=== PATIENT | male | born 1985 | race Caucasian/White ===

== ENCOUNTER 2018-12-30 21:29 | Emergency (ER) | payer MEDICAID, SELFPAY ==
[2018-12-30 21:31] VITALS: BP 153/92; PULSE 87; RESP 18; TEMP 36.7; O2SAT 98; BMI 31.1
--- NOTE | 2018-12-30 21:41 | ED.DCSUM_ITS ---
- ER Visit Summary Date of Service: 12/30/18 Chief Complaint: Headache History of Present Illness: The patient is a 33 M who has had a headache for the past 6 hours. It similar to prior headaches. It sharp on the left side of his head. He believes is coming from his neck because the neck feels tight. Denies any falls or trauma. No visual changes. He took nothing for this at home. He has a history of Marfan's syndrome. He states he has had headaches all of his life. Physical Examination: Vital signs reviewed. HEENT exam unremarkable. Heart is regular rate and rhythm without murmurs. Lungs are clear to auscultation. Abdomen is soft and nontender. Extremities reveal no edema. Skin exam normal. Neurologic exam normal. Test Results: None performed Emergency Department Course and Treatment: Patient was given Reglan and Benadryl as well as IV fluids. His headache is better but he was still complaining of pain in the left part of the neck in the musculature. I will give him Flexeril here and also some doses for home. Although he does have a history of Marfan syndrome he has a normal neurologic examination. I do not feel he needs a CAT scan of his head at this time. Treatment Plan: [] Disposition: Discharge Impression: Headache, neck pain This note was generated with [employer] dictation software. It may contain incorrect words, spelling, and punctuation that were not noted in review of the chart prior to signing ED Disposition - Plan for ED Patient: Referrals: Daniel Dolan MD [Primary Care Provider] -
[2018-12-30] MEDS: 0.9% Normal Saline 1,000 ML 999 ML IV (21:55)
[2018-12-30] MEDS: DiphenhydrAMINE 50 MG/ML Syringe 25 MG IV (21:55)
[2018-12-30] MEDS: Metoclopramide 10 MG/2 ML Vial IV (21:55)
--- NOTE | 2018-12-30 22:31 | ED.DEP ---
ED Disposition - Plan for ED Patient: Disposition: Home or Assisted Living Instructions: HEADACHE, Migraine (Classical) Prescriptions: cycloBENZAPRine HCl [Flexeril] 10 mg PO TID PRN #10 tab PRN Reason: Muscle Spasm Prescription Printed Referrals: Daniel Dolan MD [Primary Care Provider] -
[2018-12-30] MEDS: cycloBENZAPRine HCl 10 MG Tablet PO (22:41)
[2018-12-30 22:42] VITALS: BP 154/96; PULSE 84; RESP 18; O2SAT 95
== END 2018-12-30 22:47 | disposition home or self-care (01) ==
PROVIDERS: Emergency Provider Emergency Medicine; Family Provider Family Medicine; PCP Family Medicine
DX: R51 Headache (principal); M54.2 Cervicalgia; R11.0 Nausea; R06.00 Dyspnea, unspecified; Q87.40 Marfan syndrome, unspecified; Z72.0 Tobacco use
CPT/HCPCS: 96361; 96374; 96375; 99284; J7030; A4216

== ENCOUNTER 2020-06-25 16:59 | Emergency (ER) | payer MEDICAID, SELFPAY ==
[2020-06-25 16:59] VITALS: BP 165/123; PULSE 94; RESP 16; TEMP 36.6; O2SAT 99; BMI 33.5
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
[2020-06-25] MEDS: Naproxen 500 MG Tablet PO (18:28)
[2020-06-25] MEDS: cycloBENZAPRine HCl 10 MG Tablet PO (18:28)
[2020-06-25 18:33] VITALS: BP 174/122; PULSE 95; RESP 18; O2SAT 96
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
--- NOTE | 2020-06-25 19:55 | ED.RN ---
Pt yelling at this nurse about not eating for 24hrs and that he is really thristy. dr mcdonald notified. ok to give crackers and water.
[2020-06-25 20:08] VITALS: BP 166/100; PULSE 88; RESP 20; O2SAT 98
== END 2020-06-25 20:12 | disposition home or self-care (01) ==
PROVIDERS: Emergency Provider Emergency Medicine; PCP Family Medicine
DX: M54.16 Radiculopathy, lumbar region (principal); F17.200 Nicotine dependence, unspecified, uncomplicated
CPT/HCPCS: 72100; 99283

== ENCOUNTER 2022-10-13 21:37 | Inpatient (IN) | payer MEDICAID, SELFPAY ==
[2022-10-13 21:40] VITALS: PULSE 120; RESP 24; TEMP 36.6; O2SAT 98
--- NOTE | 2022-10-13 22:35 | RAD_ITS ---
INDICATION: Fall, hit knee on steps, swelling and bruising EXAMINATION/TECHNIQUE: X-RAY - RIGHT XR Knee Complete 4 Views or More COMPARISON: None. FINDINGS: SOFT TISSUES: Soft tissue swelling anterior knee. Small joint effusion. BONES/JOINTS: Transverse fractures mid and lower patella demonstrating up to 8 mm cortical distraction. No dislocation. Preservation of the joint space(s). RAD/Knee 4 or More Views IMPRESSION: Mildly distracted right patellar fracture Electronically Signed: Jose Eduardo Euceda MD at 23:06 EDT ,
[2022-10-14] VITALS (8 sets, daily range): BP systolic 162–195; BP diastolic 103–115; PULSE 97–112; RESP 16–20; TEMP 36.3–36.8; O2SAT 93–99; BMI 35.2; BMI 38.3
--- NOTE | 2022-10-14 00:57 | EX.ED.DYSGE1 ---
HPI History of Present Illness Chief Complaint: Fall Detail of Chief Complaint: Right knee injury Informant: patient Onset/Context/Timing Onset: Days (October 12) Current Severity: Moderate Maximum Severity: Severe Narrative Narrative: Patient presents secondary to knee pain. He states he was in the basement when he fell landing directly on his flexed knee. He states has not been able to bear weight. He does have some flexion and extension abilities. He denies any other injury from the fall. PFSH PFSH Medical History no medical history no medical history Home Medications cyclobenzaprine 10 mg tablet 10 mg PO TID PRN Muscle Spasm #10 tabs 12/30/18 [Rx Last Taken Unknown] cyclobenzaprine 10 mg tablet 10 mg PO TID PRN Muscle Spasm #20 tabs 06/25/20 [Rx Last Taken Unknown] methylprednisolone 4 mg tablets in a dose pack 4 mg PO UD ##1 06/25/20 [Rx Last Taken Unknown] Allergy/AdvReac Type Severity Reaction Status Date / Time No Known Allergies Allergy Verified 10/13/22 21:42 Social History Smoking Status: Current every day smoker tobacco type: cigarettes ROS ROS ED Constitutional Constitutional ED: Denies chills or fever(s) ENT ENT ED: Denies rhinorrhea or sore throat Cardiovascular Cardiovascular: Denies chest pain or palpitations Respiratory/Chest Respiratory/Chest: Denies cough or dyspnea Gastrointestinal Gastrointestinal: Denies abdominal pain, nausea or vomiting Genitourinary Genitourinary ED: Denies dysuria Musculoskeletal Musculoskeletal: Reports extremity pain; Denies back pain Integumentary Denies Abrasions or rash Neurologic Neurologic: Denies headache(s) or weakness Allergic/Immunologic Allergic/Immunologic ED: Denies lip swelling or urticaria EXAM Physical Exam Const Vital Signs: 10/13/22 21:40 10/14/22 00:44 Temperature 97.8 F Temperature Source Temporal Pulse Rate 120 H Respiratory Rate 24 H Respiratory Effort Normal Non-Labored Pulse Ox 98 Oxygen Delivery Method Room Air Positive well nourished and well developed General Appearance ED: well developed HEENT Reports normocephalic and head/scalp atraumatic Eyes PERRL and EOMs intact bilaterally Neck supple Chest Wall inspection of chest normal and palpation of chest normal Resp normal respiratory effort and clear to auscultation bilaterally Cardio regular rate and regular rhythm GI normal to inspection, nondistended, normoactive bowel sounds Palpation: soft Back/Spine Back/Spine Narrative: No midline thoracic or lumbar tenderness. Extremity Extremity Narrative: Edema and ecchymosis noted to the anterior right knee. Diffuse tenderness. Strong distal pulses. Patient is able to slightly flex and extend at the right knee. Neuro oriented x3 Sensorium / Orientation: alert Psych mental status grossly normal MDM MDM MDM Narrative Medical decision making narrative: Right knee x-rays are obtained per nursing protocol. Radiography Diagnostic Testing: Clinical Impression(s) from Imaging Studies Knee X-Ray 10/13/22 22:35 IMPRESSION: Mildly distracted right patellar fracture Electronically Signed: Jose Eduardo Euceda MD at 23:06 EDT , Treatment and Re-Evaluation :: Right knee x-ray per my interpretation reveals a right patellar fracture. Radiology interpretation is reviewed. Patient is given Moore for pain. Nursing staff placed knee immobilizer on right knee. It took the patient half an hour to get from his wheelchair into the bed. He is not able to get up and ambulate with crutches or a walker. He feels that he will need placement as he cannot care for himself. I will speak with the hospitalist. Discharge Plan Triage Chief Complaint: Fall ED Provider: Kiki Ordonez Dx/Rx/DC Orders Clinical Impression: Fracture, patella Prescriptions: No Action cyclobenzaprine 10 MG tablet 10 mg PO TID PRN (Reason: Muscle Spasm) Qty: 10 0RF cyclobenzaprine 10 MG tablet 10 mg PO TID PRN (Reason: Muscle Spasm) Qty: 20 0RF methylprednisolone 4 MG tablets,dose pack 4 mg PO UD Qty: 1 0RF Primary Care Provider: Daniel Dolan Referrals: Daniel Dolan MD [Primary Care Provider] - Disposition Disposition: Acute Care [facility]
[2022-10-14] MEDS: HYDROcodone Bitartrate/Apap 5/325 Tablet PO (01:08)
--- NOTE | 2022-10-14 01:51 | ED.RN ---
knee immobilizer placed on left knee, patient refusing to get in bed for treatment. Therefore knee immobilizer placed while in the chair. Pt keeps saying i cant walk, cant you get me a room Pt was educated buy this RN and Dr. Ordonez that patient needs to make an attempt to ambulate, if he truly is unable then we can admit to hospital for rehab placement. This RN at bedside for 35 minutes while patient attempts to stand up with crutches. After multiple attempts and patient almost falling, he was assisted into the bed. Dr Ordonez notified.
--- NOTE | 2022-10-14 02:09 | HP.PCM.HOS_ITS ---
HPI - General General Date of Admission: 10/14/22 Date of Service: 10/14/22 Chief Complaint: Right knee pain HPI Narrative CANDI VAN, is a 37 M who presented to the emergency department at [facility] on 10/14/2022 secondary to right knee pain. He was evidently in his basement when he fell landing directly on his flexed knee. This occurred on Sunday, October 13, [id number] and has not been able to bear weight since. He was able to demonstrate flexion and extension prior to imaging. He denied any other injuries from his fall. He was complaining of severe pain that was limiting him from getting out of bed and indicated he has pretty much been lying in bed since Thursday when this happened. He reports he has mobility issues at baseline. He was placed in a knee immobilizer after imaging demonstrated a right mildly distracted patellar fracture. They attempted to ambulate him but he was simply unable to even get out of the bed. He voiced concerns about going home and it was felt he would need placed in a nursing facility for ongoing rehab prior to be discharged home. Lab was ordered but pending at the time of admission. Vital signs on presentation showed a temperature of 97.8, heart rate 120, respiratory rate was 24 and oxygen saturations were 98% on room air. [facility] Medical History (Updated 10/14/22 @ 02:[address] Mya Carranza DO) Chronic pain Mobility impaired Tobacco abuse Medical History no medical history Home Medications cyclobenzaprine 10 mg tablet 10 mg PO TID PRN Muscle Spasm #10 tabs 12/30/18 [Rx Last Taken Unknown] cyclobenzaprine 10 mg tablet 10 mg PO TID PRN Muscle Spasm #20 tabs 06/25/20 [Rx Last Taken Unknown] methylprednisolone 4 mg tablets in a dose pack 4 mg PO UD ##1 06/25/20 [Rx Last Taken Unknown] Allergy/AdvReac Type Severity Reaction Status Date / Time No Known Allergies Allergy Verified 10/13/22 21:42 Family History (Updated 10/14/22 @ 02:[address] Mya Carranza DO) Other Cancer Diabetes Heart disease no surgical history Social History (Updated 10/14/22 @ 02:[address] Mya Carranza DO) household members: none housing: apartment current occupational status: disabled Smoking Status: Former smoker alcohol intake: current alcohol intake frequency: holidays/special occasions only substance use type: marijuana ROS Constitutional Constitutional: Denies anorexia, change in weight, chills, fatigue, fever(s), malaise, night sweats, weakness or other Eyes Eyes: Denies blurry vision, change in eye color, change in vision, discharge from eye(s), double vision, erythema, eye pain, loss of vision or other ENT HEENT: Denies abnormal hearing, dysphagia, ear pain, epistaxis, headache(s), hearing loss, nasal congestion, nasal discharge, post nasal drip, sinus pressure, sore throat or other Cardiovascular Cardiovascular: Denies chest pain, claudication, dyspnea on exertion, edema, lightheadedness, orthopnea, palpitations, paroxysmal nocturnal dyspnea, rapid heart rate, syncope or other Respiratory/Chest Respiratory/Chest: Denies cough, dyspnea, excessive phlegm production, hemoptysis, productive cough, shortness of breath at rest, shortness of breath with exertion, wheezing or other Gastrointestinal Gastrointestinal: Denies abdominal pain, coffee ground emesis, constipation, diarrhea, dyspepsia, hematemesis, hematochezia, loose stools, melena, nausea, vomiting or other Genitourinary Genitourinary: Denies burning urination, difficulty urinating, dysuria, hematuria, nocturia, urinary frequency, urinary hesitancy, urinary incontinence, urinary urgency or other Musculoskeletal Musculoskeletal: Reports back pain, joint pain, joint stiffness, joint swelling and other Details: Bilateral leg stiffness with constricting sensation Neurologic Neurologic: Reports abnormal gait; Denies abnormal speech, confusion, disequilibrium, dizziness, focal weakness, headache(s), numbness, paresthesias, seizure-like activity, seizures, syncope, tingling, tremor(s) or other Psychiatric Psychiatric: Denies anxiety, depression, homicidal ideation, suicidal ideation or other Endocrine Endocrinology: Denies change in body appearance, cold intolerance, excessive sweating, heat intolerance, polydipsia, polyuria or other Hematologic/Lymphatic Hematologic/Lymphatic: Denies anemia, easy bleeding, easy bruising, lymphadenopathy or other Allergic/Immunologic Allergic/Immunologic: Denies rhinitis, hives, eczemia, asthma or other Vital Signs Vital Signs Vital Signs: 10/13/22 21:40 10/14/22 00:44 Temperature 97.8 F Temperature Source Temporal Pulse Rate 120 H Respiratory Rate 24 H Respiratory Effort Normal Non-Labored Pulse Ox 98 Oxygen Delivery Method Room Air Physical Exam Const alert, oriented x3, no apparent distress, healthy appearing and well nourished Constitutional Narrative: Middle-aged, white male, sitting in bed, appears comfortable and nontoxic General Appearance: cooperative HEENT normocephalic, head/scalp atraumatic, hearing grossly normal bilaterally and moist oral mucous membranes HEENT Narrative: Dentition is poor, Mallampati is 2 Resp normal respiratory effort, no retractions, no use of accessory muscles and clear to auscultation bilaterally Auscultation: Negative for rales, rhonchi or wheezes Cardio regular rate, regular rhythm, S1 normal heart sound, S2 normal heart sound, no murmurs, no rub, no gallops and no clicks GI normal to inspection, nondistended, normoactive bowel sounds, soft to palpation and non-tender Extremity no clubbing, cyanosis or edema Extremity Narrative: 2+ pedal pulses Right Lower Extremity: knee joint inspection (Patient with swelling and ecchymosis around the anterior surface of the right knee), palpation (Tenderness with palpation anteriorly), ROM (Impaired flexion and extension) and neurovascular exam (Unremarkable) Neuro oriented x3, CN's II-XII intact bilaterally, moves all extremities and no focal motor deficits Speech: speech normal Psych Psych Narrative: Affect is somewhat odd and interaction is strange Results Lab / Micro Data Attestation: I reviewed the patient's lab results. Radiology Impression Knee X-Ray 10/13/22 22:35 IMPRESSION: Mildly distracted right patellar fracture Electronically Signed: Jose Eduardo Euceda MD at 23:06 EDT , Assessment & Plan Assessment/Plan (1) Fracture, patella: (2) Inability to ambulate due to knee: PLAN: Plan Inability ambulate secondary to right patellar fracture -Patient voices inability to go home and will need placement -Admitted only for this -Social work/case management consultation for placement--> patient will need pre-CERT -Nonweightbearing -Knee immobilizer to be placed and utilized at all times -Ice to affected area -Scheduled Tylenol -As needed ibuprofen -As needed oxycodone -PT/OT consultation -Orthopedic consultation History of tobacco abuse -Recommend continued cessation Marijuana use -Recommend cessation DVT prophylaxis -Lovenox 40 mg SQ twice daily CODE STATUS -Full code Charges/Coding Visit Charges Inpatient E&M: 46370 Init Hosp L1
[2022-10-14 02:21] LABS: Absolute Lymphocyte Count 3.49 X10^3/uL (0.83-4.51); Basophil# 0.11 X10^3/uL; Basophil% 0.6 % (0-1); Eosinophil# 0.01 X10^3/uL; Eosinophils% 0.1 % (0-5); Hematocrit 43.7 % (40-54); Hemoglobin 15.1 g/dL (13.0-16.5); Lymphocyte # 3.49 X10^3/ul (0.83-4.51); Lymphocyte % 19.1 % (19-41); Mean Corp Hgb Conc 34.6 g/dL (32-36); Mean Corpuscular Hgb 30.4 pg (27.0-32.0); Mean Corpuscular Volume 87.9 fL (80-94); Mean Platelet Vol. 8.8 fl (6.2-12.0); Monocyte# 1.55 X10^3/uL; Monocyte% 8.5 % (0-10); NRBC Flagged by Analyzer 0 % (0-5); Neutrophil % 71.3 % (47-70); POSITIVE DIFFERENTIAL YES; Platelet Count 344 K/mm3 (150-450); RBC Distribution Width CV 12.8 % (11.6-14.6); RBC Distribution Width SD 41.5 fl (35.1-43.9); Red Blood Count 4.97 M/mm3 (4.6-6.2); White Blood Count 18.2 K/mm3 (4.4-11.0)
[2022-10-14 02:23] LABS: Differential Indicated SCAN CRITERIA MET
[2022-10-14 02:31] LABS: Anion Gap 8 (5-15); BUN 10 mg/dL (7-18); Calcium,Total 9.1 mg/dL (8.5-10.1); Chloride 108 mmol/L (98-107); EST Glomerular Filtration Rate 89 mL/min (>60); Est Glom Filt Rate - Afr Amer 108 mL/min (>60); Estimated Creatinine Clearance 124.17 ml/min; Glucose 126 mg/dL (74-106); Potassium 3.3 mmol/L (3.5-5.1); Sodium Level 135 mmol/L (136-145)
[2022-10-14] MEDS: Ibuprofen 600 MG Tablet PO (03:57)
[2022-10-14] MEDS: Acetaminophen 500 MG Tablet 1000 MG PO ×3 (05:39→22:56)
[2022-10-14] MEDS: Potassium Chloride Oral Tablet 20 MEQ 40 MEQ PO (06:58)
[2022-10-14] MEDS: Potassium Chloride Oral Tablet 20 MEQ PO (07:24)
--- NOTE | 2022-10-14 07:25 | NURSING ---
pt had dropped 1 of the 20 meq kcl on floor. total of 40 meq was given
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
[2022-10-14] MEDS: cycloBENZAPRine HCl 10 MG Tablet PO (10:21)
[2022-10-14] MEDS: oxyCODONE 5 MG Tablet PO (10:21)
--- NOTE | 2022-10-14 13:25 | CASEMGMT ---
TC to therapy, pt declined to work with therapy today. RN CM into pt room, pt lying in bed, pt states he needs to go to a SNF. Made pt aware that he needs to work with therapy to determine appropriate dc disposition and any recommendations. Pt agreeable to work with them. Pt aware ERIKA RILEY will be back in to discuss dc plans.
--- NOTE | 2022-10-14 13:44 | NURSING ---
Pt refused lovenox due to anxiety of getting a shot. Pt refused despite education.
[2022-10-14] MEDS: 0.9% Saline Lock 10 ML Syringe IV ×2 (15:12→22:56)
--- NOTE | 2022-10-14 15:31 | CASEMGMT ---
Social Work? SW in to meet with pt following update from therapy that pt will need placement at nursing facility. SW introduced self and role at the hospital. Pt agreeable to discussing discharge planning. A list of SNF providers including quality and resource use data consistent with the patient?s preferred geographic region, medical needs, and insurance network were provided from the [employer] Guide. Pt reviewed list but asked if an answer can be given tomorrow pt would like to confer and review options with mother. SW discussed timeliness and need to complete the referral process quickly as pt is here in an observation status. Pt adamant that pt himself will call mother and refused to give permission for SW to follow up. Pt then began discussing Mental Health and the struggles that pt faces at home. Pt ranted about father, who talks excessively and annoys pt. SW inquired about living situation and if pt is annoyed by parents why pt would live with them. Pt stated had to move home to live with parents because previous roommate continuously brought bed begs home. Pt annoyed by mother who comes downstairs to his basement bedroom in parent's home and does not respect his privacy. SW suspecting for some Mental Health issues regarding social interactions however pt denied. SW will follow up with pt tomorrow morning for SNF Choice. PLAN: SNF? [facility]?
--- NOTE | 2022-10-14 20:36 | PCM.PN.HOSP ---
Reason for Visit Reason for Visit: Diagnoses Difficulty in walking, not elsewhere classified (10/14/22) Unspecified fracture of unspecified patella, initial encounter for closed fracture (10/14/22) Subjective Subjective Patient was seen and examined today, his affect is flat and he does not appear to want to carry on conversation with this examiner. He does answer a few questions that I posed to him. I talked with Dr. Pedro today who stated that it may be possible later on the week for the patient to have surgery-either or Thursday of this week, I will discuss this with case management and perhaps we can just keep the patient in the hospital during that timeframe and send him to a rehab center or care home after he recovers from the surgery. I asked administrator social welfare to try to contact his mother to discuss discharge planning with her, patient did not want the social poultry field service technician to talk with his mother and stated that he would talk to her himself. I did call Dr. Dolan's office today, patient has not been seen since 2019, he has a diagnosis of Marfan syndrome and degenerative disc disease of the lumbar spine according to the office. Patient's blood pressures been elevated today and I have decided to place him on blood pressure medication, according to nursing, patient told nursing that he has had no history of hypertension. Objective Data Objective Data Vital Signs: Vital Signs Temp Pulse Resp BP Pulse Ox O2 Del Method 97.8 F 112 H 20 H 174/115 H 98 Room Air 10/14/22 15:14 10/14/22 15:14 10/14/22 15:14 10/14/22 15:14 10/14/22 15:14 10/14/22 15:14 Oxygen Delivery Method Room Air Weight: 143 kg Body Mass Index (BMI) 38.3 Intake & Output: Intake and Output for Last 24 Hours 10/12/22 10/13/22 10/14/22 23:59 23:59 23:59 Intake Total 600 / 600 Output Total 600 / 600 Balance 0 / 0 Lab / Micro Data Result Diagrams: 10/14/22 02:10 10/14/22 02:10 Labs: Laboratory Results - last 24 hr 10/14/22 02:10: WBC 18.2 H, RBC 4.97, Hgb 15.1, Hct 43.7, MCV 87.9, MCH 30.4, MCHC 34.6, RDW Std Deviation 41.5, RDW Coeff of Jacey 12.8, Plt Count 344, MPV 8.8, Immature Gran % (Auto) 0.400, Neut % (Auto) 71.3 H, Lymph % (Auto) 19.1, [place] % (Auto) 8.5, Eos % (Auto) 0.1, Baso % (Auto) 0.6, Absolute Neuts (auto) 13.0 H, Absolute Lymphs (auto) 3.49, Nucleated RBC % 0, Differential Comment COMMENT 10/14/22 02:10: Sodium 135 L, Potassium 3.3 L, Chloride 108 H, Carbon Dioxide 19.0 L, Anion Gap 8, BUN 10, Creatinine 1.00, Estim Creat Clear Calc 124.17, Est GFR (MDRD) Af Amer 108, Est GFR (MDRD) Non-Af 89, BUN/Creatinine Ratio 10.0, Glucose 126 H, Calcium 9.1 Radiography Diagnostic Testing: Radiology Impression Knee X-Ray 10/13/22 22:35 IMPRESSION: Mildly distracted right patellar fracture Electronically Signed: Jose Eduardo Euceda MD at 23:06 EDT , Physical Exam Const alert, oriented x3, no apparent distress and healthy appearing General Appearance: cooperative, well kempt and well developed Orientation / Consciousness: awake, oriented to person, oriented to place and oriented to time HEENT normocephalic and moist oral mucous membranes Eyes PERRL, EOMs intact bilaterally and conjunctivae normal Neck supple, no JVD, thyroid normal and no carotid bruits General: trachea midline Resp normal respiratory effort and clear to auscultation bilaterally Auscultation: Negative for rales, rhonchi or wheezes Cardio regular rate, regular rhythm, no murmurs, no rub and no gallops GI normal to inspection, nondistended, normoactive bowel sounds, soft to palpation, non-tender and non-distended Extremity Extremity Narrative: Patient's right knee is in an immobilizer at this time Skin no rashes or lesions noted General Skin Exam: no breakdown Neuro oriented x3, CN's II-XII intact bilaterally, no focal motor deficits and no sensory deficits noted Sensorium / Orientation: awake, alert, oriented to person, oriented to place and oriented to time Speech: speech normal Psych Psych Narrative: Patient has a flat affect Assessment & Plan Assessment/Plan (1) Fracture, patella: PLAN: Plan 1. Right patellar fracture-again patient was seen by orthopedic surgery, the plan is for the patient undergo surgical repair during his hospitalization, he will need placement in residential facility afterwards for short-term rehab services. #2 elevated blood pressure-I have decided to place patient on blood pressure medications, I believe he has undiagnosed essential hypertension, I will reevaluate his blood pressure coverage tomorrow. #3 acute debility secondary to right patellar fracture-PT and OT are seeing patient, he will need short-term placement in a residential facility after discharge from the hospital. Total clinical time spent by myself addressing the patient's medical issues, reviewing all of his data, and collaborating with patient's care team: 35 minutes Charges/Coding Visit Charges Inpatient E&M: 02974 Subs Hosp L2
--- NOTE | 2022-10-14 21:11 | NURSING ---
provided pt with Gabriel education on Lisinopril. Pt wants time to decide if he wants to take the medication.
--- NOTE | 2022-10-14 22:49 | NURSING ---
pt refusing to take lisinopril due to side effects
--- NOTE | 2022-10-15 00:14 | NURSING ---
pt requested information on hydralazine. gisella paper given. pt refused hydralazine due to side effects. attempted again to educate pt on effects of high blood pressure. Booklet given about high blood pressure. Dr Crow in to talk to pt about lisinopril and hydralazine, side effects and how high blood pressure effects the body. Dr Crow stressed the importance of controlling blood pressure to prevent strokes. Pt states that he would like his blood pressure checked in the the morning and at that time he will decide about taking blood pressure medications.
[2022-10-15 02:11] VITALS: BP 188/119; PULSE 99; RESP 18; TEMP 36.4; O2SAT 99
--- NOTE | 2022-10-15 02:13 | NURSING ---
pt continues to refuse blood pressure meds. attempted to provide education.
[2022-10-15 06:39] VITALS: BP 174/100; PULSE 87; RESP 20; TEMP 36.6; O2SAT 96
[2022-10-15] MEDS: Acetaminophen 500 MG Tablet 1000 MG PO ×3 (06:43→23:18)
[2022-10-15] MEDS: Lisinopril 20 MG Tablet PO ×2 (06:44→17:09)
--- NOTE | 2022-10-15 06:46 | NURSING ---
obtained vitals, pt willing to take lisinopril.
[2022-10-15 08:00] VITALS: BP 176/113; PULSE 88; RESP 16; TEMP 36.6; O2SAT 98
[2022-10-15] MEDS: oxyCODONE 5 MG Tablet PO ×2 (08:13→17:09)
[2022-10-15 10:54] LABS: Pathologist Review Reviewed
--- NOTE | 2022-10-15 11:00 | CASEMGMT ---
Addendum entered by Anika Navarro 10/15/22 12:17: SW in to pt room to notify that [facility] unable to accept. Pt upset, stated was just getting ready to eat lunch and now has anxiety. Pt continues to be overwhelmed when interrupted from routine. SW offered apology, suggested use of coping skills. Since pt not ready for d/c SW explained pt has some time to review other options. Pt stated mother coming in to visit this evening and would review SNF choices with mother then. SW explained new SW would be in to speak with pt tomorrow. Pt voiced understanding. Addendum entered by Anika Navarro 10/15/22 12:05: [facility] responded unable to accept pt due to pt being to young. [facility] prefers 55+ residents. Original Note: Social Work SW following up on SNF choice from yesterday, in to pt room to discuss. MD Boswell in room informing pt that surgery can be scheduled for or thursday of this week and pt can stay at [facility] until then but will need SNF after. Pt was noted to be arguing with MD regarding discussion of medical symptoms. Pt wanted wording that was used to be specific to pt's own thoughts and information presented by pt himself, not what MD stated to THOMAS. Pt continued to correct MD during discussion. MD left after sharing intent to send pt for cat scan later this day to address the symptoms pt is having. Pt then stated preference for SNF is [facility]. THOMAS asked for second choice in the event that [facility] unable to accept. Pt stated I just got my head around [facility]. That's my only choice. THOMAS explained a referral will be sent to [facility] but also informed pt to prepare self for possible denial and to review list for alternative choices that can be explored later this day if necessary. Pt voiced understanding. THOMAS then spoke to MD in hallway outside of pt room. MD confirmed pt will remain at [facility] until surgery. THOMAS and MD discussed pt's particular needs and agreed pt requires patience and time to process information. THOMAS sent referral to [facility] via [employer]. [facility] likely to deny as pt may not meet age requirement. Will await determination on acceptance. PLAN: [facility], pending acceptance and precert [facility]
[2022-10-15] MEDS: DULoxetine Hcl 30 MG Capsule PO (12:12)
[2022-10-15 14:22] VITALS: BP 174/105; PULSE 102; RESP 18; TEMP 36.6; O2SAT 98
[2022-10-15] MEDS: hydroCHLOROthiazide 25 MG Tablet PO (17:09)
--- NOTE | 2022-10-15 17:34 | PN.ORTHO_ITS ---
Subjective Subjective Patient seen and examined. Reports some nausea and vomiting today, feels well at the moment. He thinks this is due to pain while attempting to ambulate. Denies any other new complaints. Denies fevers, chills, chest pain or shortness of breath. Objective Data Objective Data Vital Signs: Vital Signs Temp Pulse Resp BP Pulse Ox O2 Del Method 98 F 102 H 18 174/105 H 98 Room Air 10/15/22 14:22 10/15/22 14:22 10/15/22 14:22 10/15/22 14:22 10/15/22 14:22 10/15/22 14:22 Oxygen Delivery Method Room Air Weight: 315 lb 4.176 oz Body Mass Index (BMI) 38.3 Intake & Output: Intake and Output for Last 24 Hours 10/13/22 10/14/22 10/15/22 23:59 23:59 23:59 Intake Total 900 / 900 200 / 200 Output Total 1300 / 1300 700 / 700 Balance -400 / -400 -500 / -500 Lab / Micro Data Result Diagrams: 10/14/22 02:10 10/14/22 02:10 Labs: Laboratory Results - last 24 hr 10/14/22 02:10: Diff Path Review Reviewed Physical Exam Narrative General - A&Ox3, NAD. VSS/AF Right lower extremity -knee immobilizer in place. Ecchymosis noted over the anterior right knee. Skin wrinkling is present. Appropriately tender of the patella. SILT Sural, Saphenous, SPN, DPN, Tibial N. distributions. DP, PT 2+. BCR. DF, PF, EHL 5/5. No calf TTP. Assessment & Plan Assessment/Plan (1) Fracture, patella: PLAN: Due to the delayed placement at [facility], we will plan to proceed with right patella open reduction internal fixation tomorrow. N.p.o. tomorrow. Maintenance IV fluids. 3 g Ancef on-call to the OR. I reviewed the risks, benefits, terms the procedure with the patient. Risk include but are not limited to bleeding, flexion, loss of life or limb, need for additional surgery, nonhealing wounds or bone, stiffness, need for hardware removal, neurovascular injury, DVT or PE. Patient expressed understands risk and wished to proceed with surgery. Informed consent obtained.
[2022-10-15 18:41] VITALS: BP 156/105
--- NOTE | 2022-10-15 20:16 | PCM.PN.HOSP ---
Reason for Visit Reason for Visit: Diagnoses Difficulty in walking, not elsewhere classified (10/14/22) Unspecified fracture of unspecified patella, initial encounter for closed fracture (10/14/22) Subjective Subjective Patient was seen and examined today, I talked with him briefly about going to a nursing facility and told him the plan was to repair his patellar fracture possibly tomorrow. Patient understood this and was okay with that. Patient's blood pressure remained elevated today, I had to add additional blood pressure medication to try to control his blood pressure. Objective Data Objective Data Vital Signs: Vital Signs Temp Pulse Resp BP Pulse Ox O2 Del Method 98 F 102 H 18 156/105 H 98 Room Air 10/15/22 14:22 10/15/22 14:22 10/15/22 14:22 10/15/22 18:41 10/15/22 14:22 10/15/22 14:22 Oxygen Delivery Method Room Air Weight: 143 kg Body Mass Index (BMI) 38.3 Intake & Output: Intake and Output for Last 24 Hours 10/13/22 10/14/22 10/15/22 23:59 23:59 23:59 Intake Total 900 / 900 200 / 200 Output Total 1300 / 1300 700 / 700 Balance -400 / -400 -500 / -500 Lab / Micro Data Result Diagrams: 10/14/22 02:10 10/14/22 02:10 Labs: Laboratory Results - last 24 hr 10/14/22 02:10: Diff Path Review Reviewed Physical Exam Narrative alert, oriented x3, no apparent distress and healthy appearing General Appearance: cooperative, well kempt and well developed Orientation / Consciousness: awake, oriented to person, oriented to place and oriented to time HEENT normocephalic and moist oral mucous membranes Eyes PERRL, EOMs intact bilaterally and conjunctivae normal Neck supple, no JVD, thyroid normal and no carotid bruits General: trachea midline Resp normal respiratory effort and clear to auscultation bilaterally Auscultation: Negative for rales, rhonchi or wheezes Cardio regular rate, regular rhythm, no murmurs, no rub and no gallops GI normal to inspection, nondistended, normoactive bowel sounds, soft to palpation, non-tender and non-distended Extremity Extremity Narrative: Patient's right knee is in an immobilizer at this time Skin no rashes or lesions noted General Skin Exam: no breakdown Neuro oriented x3, CN's II-XII intact bilaterally, no focal motor deficits and no sensory deficits noted Sensorium / Orientation: awake, alert, oriented to person, oriented to place and oriented to time Speech: speech normal Psych Psych Narrative: Patient has a flat affect Assessment & Plan Assessment/Plan (1) Fracture, patella: PLAN: Plan 1. Right patellar fracture-again patient was seen by orthopedic surgery, the plan is for the patient undergo surgical repair during his hospitalization, he will need placement in senior care facility afterwards for short-term rehab services. Tentatively the patient will be scheduled for surgery tomorrow if Ortho is able to get the patient a surgery slot. #2 elevated blood pressure-patient's blood pressure medication was adjusted #3 acute debility secondary to right patellar fracture-PT and OT are seeing patient, he will need short-term placement in a senior care facility after discharge from the hospital. Total clinical time spent by myself addressing the patient's medical issues, reviewing all of his data, and collaborating with patient's care team: 36 minutes Charges/Coding Visit Charges Inpatient E&M: 89688 Subs Hosp L2
--- NOTE | 2022-10-15 21:09 | CT_ITS ---
EXAM: CT ABDOMEN AND PELVIS WITHOUT INTRAVENOUS CONTRAST CLINICAL INDICATION: abdominal pressure -- no oral or IV contrast TECHNIQUE: Helically acquired images were obtained of the abdomen and pelvis without intravenous contrast. This CT exam was performed using one or more of the following dose reduction techniques: automated exposure control, adjustment of the mA and/or kV according to patient size, and/or use of iterative reconstruction technique. This report was created using MeBeam report generation technology. RADIATION DOSE: Total DLP: 1158.13 mGy-cm. COMPARISON: None. FINDINGS: LOWER THORAX: The visualized lung bases are clear. Minimal coronary artery calcification. No significant pericardial effusion. ABDOMEN: LIVER: Fatty infiltration of the liver, which is not enlarged. Focal fatty sparing about the gallbladder. GALLBLADDER AND BILE DUCTS: Normal size gallbladder. Possible punctate stone within the gallbladder neck as noted on axial image 34 of series 2 and parasagittal image 110 of series 602. No findings of acute cholecystitis. No biliary ductal dilatation. PANCREAS: Unremarkable. No focal cystic mass. SPLEEN: Unremarkable. Normal size without focal cystic or solid mass. ADRENALS: Unremarkable. No nodules. KIDNEYS AND URETERS: Normal size kidneys. 5 mm nonobstructing stone within the mid pole collecting system of the right kidney. No hydronephrosis or obstructing ureteral stone. 9 mm exophytic nodule projects laterally from the interpolar region of the left kidney, showing CT attenuation of 25 on the axial images and 14 on coronal images, consistent with a small simple cyst which requires no follow-up. STOMACH AND BOWEL: Stool fills the distal sigmoid colon and rectum, with the rectosigmoid stool collection measuring 6.2 cm in transverse diameter by 6.3 cm in AP diameter by approximately 12 cm in cephalocaudal dimension. No associated colonic mural thickening or pericolonic stranding to suggest stercoral colitis. No pneumatosis or extraluminal air. No gastric mural thickening, periduodenal inflammatory changes or distended small bowel loops. No findings of small bowel obstruction, diverticulitis or colitis. PELVIS: APPENDIX: Normal. No evidence of acute appendicitis. BLADDER: Unremarkable. REPRODUCTIVE: Unremarkable as visualized. No mass. ABDOMEN and PELVIS: INTRAPERITONEAL SPACE: No ascites or free air. BONES/JOINTS: Mild anterior wedge configuration of the T10, T11 and T12 vertebral bodies due to congenital variant versus old trauma. Degenerative spurring about the L1/2 and L2/3 disc spaces. Chronic pars defects at L5. Old fractures of the left superior and inferior pubic rami. Fusion of the SI joints. No suspicious lytic or blastic abnormality. SOFT TISSUES: Unremarkable. No discrete abdominal or pelvic wall hernia. VASCULATURE: Minimally calcific abdominal aorta. No AAA. LYMPH NODES: Scattered tiny nonspecific lymph nodes are noted within the jejunal mesentery. No adenopathy. CT/Abdomen/Pelvis without Cont IMPRESSION: 1. Large amount of formed stool within the distal sigmoid colon and rectum, raising the possibility of fecal impaction. 2. No evidence for small bowel obstruction. 3. Normal appendix. 4. Nonobstructing right renal calculus. No hydronephrosis or obstructing ureteral stone. 5. Possible tiny gallstone within the gallbladder neck. Electronically Signed: Keaton Ellis MD at 22:38 EDT ,
[2022-10-15] MEDS: 0.9% Saline Lock 10 ML Syringe IV (23:09)
[2022-10-15] MEDS: Lactated Ringers 1,000 ML 125 ML IV (23:11)
[2022-10-15] MEDS: Enoxaparin 40 MG/0.4 ML Syringe SC (23:12)
[2022-10-15 23:15] VITALS: BP 155/102; PULSE 120; RESP 20; TEMP 36.6; O2SAT 96
[2022-10-15] MEDS: diazePAM 5 MG Tablet PO (23:19)
[2022-10-16] VITALS (11 sets, daily range): BP systolic 119–191; BP diastolic 87–108; PULSE 107–139; RESP 16–20; TEMP 35.7–37; O2SAT 92–98; BMI 38.3
[2022-10-16 06:15] LABS: Absolute Lymphocyte Count 4.17 X10^3/uL (0.83-4.51); Absolute Neutrophil Count 9.3 X10^3/uL (2.0-7.7); Basophil# 0.12 X10^3/uL; Basophil% 0.8 % (0-1); Eosinophil# 0.25 X10^3/uL; Eosinophils% 1.6 % (0-5); Hemoglobin 14.3 g/dL (13.0-16.5); Lymphocyte # 4.17 X10^3/ul (0.83-4.51); Lymphocyte % 27.1 % (19-41); Mean Corp Hgb Conc 33.3 g/dL (32-36); Mean Corpuscular Hgb 30.1 pg (27.0-32.0); Mean Corpuscular Volume 90.5 fL (80-94); Mean Platelet Vol. 8.7 fl (6.2-12.0); Monocyte# 1.46 X10^3/uL; Monocyte% 9.5 % (0-10); NRBC Flagged by Analyzer 0 % (0-5); Neutrophil # 9.28 X10^3/uL (2.7-7.7); Neutrophil % 60.3 % (47-70); Platelet Count 346 K/mm3 (150-450); RBC Distribution Width CV 13.1 % (11.6-14.6); RBC Distribution Width SD 43.1 fl (35.1-43.9); Red Blood Count 4.75 M/mm3 (4.6-6.2); White Blood Count 15.4 K/mm3 (4.4-11.0)
[2022-10-16] MEDS: Lactated Ringers 1,000 ML 125 ML IV ×3 (06:49→22:17)
[2022-10-16] MEDS: hydroCHLOROthiazide 25 MG Tablet PO (08:09)
[2022-10-16] MEDS: Lisinopril 40 MG Tablet PO (08:11)
[2022-10-16] MEDS: oxyCODONE 5 MG Tablet PO ×3 (08:11→23:21)
[2022-10-16] MEDS: Lactated Ringers 1,000 ML 15 ML IV ×2 (08:55→10:31)
--- NOTE | 2022-10-16 09:56 | RAD_ITS ---
EXAM: Limited knee, 2 views HISTORY: PATELLA FX COMPARISON: None TECHNIQUE: 2 intraoperative films of the knee. FINDINGS: 2 limited intraoperative films of the right knee performed as patient has undergone open reduction internal fixation of a patellar fracture. No intraoperative complications. Alignment is anatomic at the fracture site. Follow-up recommended to assure osseous union. RAD/Knee 1 or 2 Views IMPRESSION: No intraoperative complications noted during reduction internal fixation of a patellar fracture Electronically Signed: Chai Pelayo MD at 12:58 EDT ,
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
--- NOTE | 2022-10-16 13:58 | CASEMGMT ---
SW spoke with patient regarding SNF selection. Pt requested [facility] and [facility]. Referrals sent via [facility]. Rupa Haley FINAL INSTALLER INSPECTOR, RETAIL STORE ASSOCIATE
[2022-10-16] MEDS: Acetaminophen 500 MG Tablet 1000 MG PO ×2 (15:12→22:16)
--- NOTE | 2022-10-16 15:58 | CASEMGMT ---
SW notified patient that [facility] does not have a bed available and [facility] does not take [facility]. Pt provided [facility] as another selection. Pt reports he will discuss other options with his mother this evening. THOMAS sent referral to [facility] via [facility]. Rupa Haley BINDING CUTTER, FOURDRINIER MACHINE OPERATOR
--- NOTE | 2022-10-16 16:07 | CASEMGMT ---
[facility] has no available beds. Pt updated and will talk to his mother this evening about other options. SW to follow up tomorrow. JOSÉ Stapleton
[2022-10-16] MEDS: 0.9% Saline Lock 10 ML Syringe IV (16:36)
[2022-10-16] MEDS: Cefazolin 1 GM/50 ML BAG IV (17:21)
--- NOTE | 2022-10-16 17:59 | PN.HOSP_ITS ---
Reason for Visit Reason for Visit: Diagnoses Difficulty in walking, not elsewhere classified (10/14/22) Unspecified fracture of unspecified patella, initial encounter for closed fracture (10/14/22) Subjective Subjective Patient was seen and examined today, he underwent surgery today, he appears to be resting comfortably he has no complaints of any severe pain at this time. Patient CT of his abdomen and pelvis did not show any acute pathology that would explain why the patient has a complaint of pressure over his abdomen. I went over the results with him today Objective Data Objective Data Vital Signs: Vital Signs Temp Pulse Resp BP Pulse Ox O2 Del Method O2 Flow Rate 98.2 F 110 H 17 135/87 H 96 Room Air 2 10/16/22 16:41 10/16/22 16:41 10/16/22 16:41 10/16/22 16:41 10/16/22 16:41 10/16/22 16:41 10/16/22 11:32 Oxygen Flow Rate (L/min) 2 Oxygen Delivery Method Room Air Weight: 143 kg Body Mass Index (BMI) 38.3 Intake & Output: Intake and Output for Last 24 Hours 10/14/22 10/15/22 10/16/22 23:59 23:59 23:59 Intake Total 900 / 900 600 / 600 2621.25 / 2621.25 Output Total 1300 / 1300 1325 / 1325 1550 / 1550 Balance -400 / -400 -725 / -725 1071.25 / 1071.25 Lab / Micro Data Result Diagrams: 10/16/22 06:05 10/14/22 02:10 Labs: Laboratory Results - last 24 hr 10/16/22 06:05: WBC 15.4 H, RBC 4.75, Hgb 14.3, Hct 43.0, MCV 90.5, MCH 30.1, MCHC 33.3, RDW Std Deviation 43.1, RDW Coeff of Jacey 13.1, Plt Count 346, MPV 8.7, Immature Gran % (Auto) 0.700, Neut % (Auto) 60.3, Lymph % (Auto) 27.1, [place] % (Auto) 9.5, Eos % (Auto) 1.6, Baso % (Auto) 0.8, Absolute Neuts (auto) 9.3 H, Absolute Lymphs (auto) 4.17, Nucleated RBC % 0 Radiography Diagnostic Testing: Radiology Impression Abdomen/Pelvis CT 10/15/22 21:09 IMPRESSION: 1. Large amount of formed stool within the distal sigmoid colon and rectum, raising the possibility of fecal impaction. 2. No evidence for small bowel obstruction. 3. Normal appendix. 4. Nonobstructing right renal calculus. No hydronephrosis or obstructing ureteral stone. 5. Possible tiny gallstone within the gallbladder neck. Electronically Signed: Keaton Ellis MD at 22:38 EDT , Knee X-Ray 10/16/22 09:56 IMPRESSION: No intraoperative complications noted during reduction internal fixation of a patellar fracture Electronically Signed: Chai Pelayo MD at 12:58 EDT , Physical Exam Narrative alert, oriented x3, no apparent distress and healthy appearing General Appearance: cooperative, well kempt and well developed Orientation / Consciousness: awake, oriented to person, oriented to place and oriented to time HEENT normocephalic and moist oral mucous membranes Eyes PERRL, EOMs intact bilaterally and conjunctivae normal Neck supple, no JVD, thyroid normal and no carotid bruits General: trachea midline Resp normal respiratory effort and clear to auscultation bilaterally Auscultation: Negative for rales, rhonchi or wheezes Cardio regular rate, regular rhythm, no murmurs, no rub and no gallops GI normal to inspection, nondistended, normoactive bowel sounds, soft to palpation, non-tender and non-distended Extremity Extremity Narrative: Patient's right knee is in an immobilizer at this time Skin no rashes or lesions noted General Skin Exam: no breakdown Neuro oriented x3, CN's II-XII intact bilaterally, no focal motor deficits and no sensory deficits noted Sensorium / Orientation: awake, alert, oriented to person, oriented to place and oriented to time Speech: speech normal Psych Psych Narrative: Patient has a flat affect Assessment & Plan Assessment/Plan (1) Fracture, patella: PLAN: Plan 1. Right patellar fracture-postop day 0 open reduction and internal fixation right patella, PT and OT will continue to see the patient, he will need temporary placement in long-term facility at the time of discharge from the hospital. #2 elevated blood pressure-patient's blood pressure medication was adjusted yesterday, his pressure is improved today #3 acute debility secondary to right patellar fracture-PT and OT are seeing patient, he will need short-term placement in a long-term facility after discharge from the hospital. Total clinical time spent by myself addressing the patient's medical issues, reviewing all of his data, and collaborating with patient's care team: 35 minutes Charges/Coding Visit Charges Inpatient E&M: 52750 Subs Hosp L2
[2022-10-16] MEDS: Enoxaparin 40 MG/0.4 ML Syringe SC (22:17)
[2022-10-16] MEDS: MELATONIN 3 MG TABLET PO (23:21)
[2022-10-16] MEDS: cycloBENZAPRine HCl 10 MG Tablet PO (23:21)
[2022-10-17 02:41] VITALS: BP 151/103; PULSE 110; RESP 20; TEMP 36.7; O2SAT 95
[2022-10-17] MEDS: Cefazolin 1 GM/50 ML BAG IV (02:51)
[2022-10-17] MEDS: Ibuprofen 600 MG Tablet PO (03:01)
[2022-10-17 05:42] VITALS: BP 118/85; PULSE 72; RESP 18; TEMP 37.3; O2SAT 97
[2022-10-17] MEDS: Acetaminophen 500 MG Tablet 1000 MG PO ×3 (05:47→21:44)
[2022-10-17] MEDS: Lactated Ringers 1,000 ML 125 ML IV ×2 (06:49→13:43)
[2022-10-17 07:23] LABS: Anion Gap 6 (5-15); BUN 10 mg/dL (7-18); BUN/Creat Ratio 10.9 RATIO (10-20); Calcium,Total 8.9 mg/dL (8.5-10.1); Chloride 101 mmol/L (98-107); Creatinine, Serum 0.92 mg/dL (0.70-1.30); EST Glomerular Filtration Rate 98 mL/min (>60); Est Glom Filt Rate - Afr Amer 119 mL/min (>60); Estimated Creatinine Clearance 134.97 ml/min; Glucose 111 mg/dL (74-106); Potassium 3.5 mmol/L (3.5-5.1); Sodium Level 135 mmol/L (136-145)
--- NOTE | 2022-10-17 07:30 | PN.ORTHO_ITS ---
Subjective Subjective Patient seen and examined. Denies any new complaints. Pain is controlled current pain regimen. Denies fevers, chills, nausea vomiting, chest pain or shortness of breath. Objective Data Objective Data Vital Signs: Vital Signs Temp Pulse Resp BP Pulse Ox O2 Del Method O2 Flow Rate 99.2 F H 72 18 118/85 H 97 Room Air 2 10/17/22 05:42 10/17/22 05:42 10/17/22 05:42 10/17/22 05:42 10/17/22 05:42 10/17/22 05:42 10/16/22 11:32 Oxygen Flow Rate (L/min) 2 Oxygen Delivery Method Room Air Weight: 315 lb 4.176 oz Body Mass Index (BMI) 38.3 Intake & Output: Intake and Output for Last 24 Hours 10/15/22 10/16/22 10/17/22 23:59 23:59 23:59 Intake Total 600 / 600 3671.25 / 3671.25 2049 / 2049 Output Total 1325 / 1325 1550 / 3050 3350 / 3350 Balance -725 / -725 2121.25 / 621.25 -1300 / -1300 Lab / Micro Data Result Diagrams: 10/16/22 06:05 10/17/22 06:15 Labs: Laboratory Results - last 24 hr 10/17/22 06:15: Sodium 135 L, Potassium 3.5, Chloride 101, Carbon Dioxide 28.0, Anion Gap 6, BUN 10, Creatinine 0.92, Estim Creat Clear Calc 134.97, Est GFR (MDRD) Af Amer 119, Est GFR (MDRD) Non-Af 98, BUN/Creatinine Ratio 10.9, Glucose 111 H, Calcium 8.9 Radiography Diagnostic Testing: Radiology Impression Knee X-Ray 10/16/22 09:56 IMPRESSION: No intraoperative complications noted during reduction internal fixation of a patellar fracture Electronically Signed: Chai Pelayo MD at 12:58 EDT , Physical Exam Narrative General - A&Ox3, NAD. VSS/AF Right lower extremity -incisional dressing C/D/I. T ROM brace in place locked in extension. SILT Sural, Saphenous, SPN, DPN, Tibial N. distributions. DP, PT 2+. BCR. DF, PF, EHL 5/5. No calf TTP. Assessment & Plan Assessment/Plan (1) Fracture, patella: PLAN: POD#1 s/p right patella ORIF - Pain control - Medicine following for medical management - PT/OT -weightbearing as tolerated right lower extremity with knee brace locked in full extension. - DVT PPX -Lovenox, SCDs, early mobilization. Okay for transition to oral aspirin for DVT prophylaxis upon discharge if patient mobilizing better. - Case management - D/C planning Stable for [facility] from my standpoint. Follow-up in 2 weeks. Maintain surgical dressing x7 days. Okay to remove the brace for hygiene purposes only. No flexion of the knee. Weightbearing as tolerated right lower extremity. I will sign off at this time. Please not hesitate to call if any questions or concerns arise.
[2022-10-17 08:27] VITALS: BP 144/90; PULSE 87; RESP 18; TEMP 36.9; O2SAT 94
[2022-10-17 08:30] VITALS: PULSE 90
[2022-10-17] MEDS: hydroCHLOROthiazide 25 MG Tablet PO (08:40)
[2022-10-17] MEDS: Famotidine 20 MG Tablet PO (08:40)
[2022-10-17] MEDS: Lisinopril 40 MG Tablet PO (08:41)
[2022-10-17] MEDS: Enoxaparin 40 MG/0.4 ML Syringe SC ×2 (08:42→21:44)
--- NOTE | 2022-10-17 09:22 | CASEMGMT ---
SW spoke with patient regarding selecting new SNF for referral. Pt was agitated initially and presents as anxious. [facility] and referrals sent via [facility]. Rupa Haley WASH DRILLER, MELTER OPERATOR
--- NOTE | 2022-10-17 10:24 | CASEMGMT ---
[facility] accepted patient and is beginning precert. Referrals to [facility] cancelled. SW will follow up to notify patient as he was sleeping. Rupa Halye UNDERCOVER AGENT, DWARF TREE GROWER
[2022-10-17] MEDS: oxyCODONE 5 MG Tablet PO (13:47)
[2022-10-17 13:50] VITALS: BP 141/78; PULSE 98; RESP 18; TEMP 36.6; O2SAT 98
--- NOTE | 2022-10-17 16:00 | CASEMGMT ---
SW spoke with [facility] to follow up on precert. Admissions reported they would likely not hear back until Thursday due to his insurance. Fax number and phone number for weekend received and placed on chart. Pt notified of waiting on precert. Rupa Haley MSW, INSPECTOR FINAL ASSEMBLY ELECTRICAL
--- NOTE | 2022-10-17 19:47 | PCM.PN.HOSP ---
Reason for Visit Reason for Visit: Diagnoses Difficulty in walking, not elsewhere classified (10/14/22) Unspecified fracture of unspecified patella, initial encounter for closed fracture (10/14/22) Subjective Subjective Patient was seen and examined today, he appeared upbeat and more talkative today. He did not complain of any severe knee pain, he states he has picked out another extended care facility to go to at the time of discharge from the hospital. We are currently awaiting insurance approval for this nursing facility. Objective Data Objective Data Vital Signs: Vital Signs Temp Pulse Resp BP Pulse Ox O2 Del Method O2 Flow Rate 97.8 F 98 18 141/78 H 98 Room Air 2 10/17/22 13:50 10/17/22 13:50 10/17/22 13:50 10/17/22 13:50 10/17/22 13:50 10/17/22 13:50 10/16/22 11:32 Oxygen Flow Rate (L/min) 2 Oxygen Delivery Method Room Air Weight: 143 kg Body Mass Index (BMI) 38.3 Intake & Output: Intake and Output for Last 24 Hours 10/15/22 10/16/22 10/17/22 23:59 23:59 23:59 Intake Total 600 / 600 3671.25 / 3671.25 2912.5 / 2912.5 Output Total 1325 / 1325 1550 / 3050 4525 / 4525 Balance -725 / -725 2121.25 / 621.25 -1612.5 / -1612.5 Lab / Micro Data Result Diagrams: 10/16/22 06:05 10/17/22 06:15 Labs: Laboratory Results - last 24 hr 10/17/22 06:15: Sodium 135 L, Potassium 3.5, Chloride 101, Carbon Dioxide 28.0, Anion Gap 6, BUN 10, Creatinine 0.92, Estim Creat Clear Calc 134.97, Est GFR (MDRD) Af Amer 119, Est GFR (MDRD) Non-Af 98, BUN/Creatinine Ratio 10.9, Glucose 111 H, Calcium 8.9 Physical Exam Narrative alert, oriented x3, no apparent distress and healthy appearing General Appearance: cooperative, well kempt and well developed Orientation / Consciousness: awake, oriented to person, oriented to place and oriented to time HEENT normocephalic and moist oral mucous membranes Eyes PERRL, EOMs intact bilaterally and conjunctivae normal Neck supple, no JVD, thyroid normal and no carotid bruits General: trachea midline Resp normal respiratory effort and clear to auscultation bilaterally Auscultation: Negative for rales, rhonchi or wheezes Cardio regular rate, regular rhythm, no murmurs, no rub and no gallops GI normal to inspection, nondistended, normoactive bowel sounds, soft to palpation, non-tender and non-distended Extremity Extremity Narrative: Patient's right knee is in an immobilizer at this time Skin no rashes or lesions noted General Skin Exam: no breakdown Neuro oriented x3, CN's II-XII intact bilaterally, no focal motor deficits and no sensory deficits noted Sensorium / Orientation: awake, alert, oriented to person, oriented to place and oriented to time Speech: speech normal Psych Psych Narrative: Patient has a flat affect Assessment & Plan Assessment/Plan (1) Fracture, patella: PLAN: Plan 1. Right patellar fracture-postop day 1 open reduction and internal fixation right patella, PT and OT will continue to see the patient, he will need temporary placement in long-term facility at the time of discharge from the hospital. #2 elevated blood pressure-patient's blood pressure medications will continue #3 acute debility secondary to right patellar fracture-PT and OT are seeing patient, he will need short-term placement in a long-term facility after discharge from the hospital. Total clinical time spent by myself addressing the patient's medical issues, reviewing all of his data, and collaborating with patient's care team: 35 minutes Charges/Coding Visit Charges Inpatient E&M: 70148 Subs Hosp L2
[2022-10-17 21:37] VITALS: BP 133/80; PULSE 110; RESP 20; TEMP 36.6; O2SAT 100
[2022-10-17] MEDS: 0.9% Saline Lock 10 ML Syringe IV (21:44)
[2022-10-18 01:10] VITALS: BP 130/72; PULSE 110; RESP 20; TEMP 36.8; O2SAT 96
[2022-10-18] MEDS: MELATONIN 3 MG TABLET PO ×2 (01:16→22:55)
[2022-10-18] MEDS: oxyCODONE 5 MG Tablet PO (01:16)
[2022-10-18 05:37] VITALS: BP 139/77; PULSE 95; RESP 16; TEMP 36.6; O2SAT 97
[2022-10-18] MEDS: Acetaminophen 500 MG Tablet 1000 MG PO ×3 (05:41→22:55)
[2022-10-18] MEDS: hydroCHLOROthiazide 25 MG Tablet PO (08:30)
[2022-10-18] MEDS: Famotidine 20 MG Tablet PO (08:31)
[2022-10-18] MEDS: Enoxaparin 40 MG/0.4 ML Syringe SC ×2 (08:31→22:55)
[2022-10-18] MEDS: Lisinopril 40 MG Tablet PO (08:31)
[2022-10-18 11:06] VITALS: BP 139/81; PULSE 98; RESP 18; TEMP 36.7; O2SAT 97
[2022-10-18 15:52] VITALS: BP 128/79; PULSE 108; RESP 18; TEMP 36.6; O2SAT 97
--- NOTE | 2022-10-18 17:33 | PCM.PN.HOSP ---
Reason for Visit Reason for Visit: Diagnoses Difficulty in walking, not elsewhere classified (10/14/22) Unspecified fracture of unspecified patella, initial encounter for closed fracture (10/14/22) Subjective Subjective Patient was seen and examined today, he has no complaints of any severe pain in the right knee, fevers, or chills Objective Data Objective Data Vital Signs: Vital Signs Temp Pulse Resp BP Pulse Ox O2 Del Method O2 Flow Rate 97.9 F 108 H 18 128/79 H 97 Room Air 2 10/18/22 15:52 10/18/22 15:52 10/18/22 15:52 10/18/22 15:52 10/18/22 15:52 10/18/22 15:52 10/16/22 11:32 Oxygen Flow Rate (L/min) 2 Oxygen Delivery Method Room Air Weight: 143 kg Body Mass Index (BMI) 38.3 Intake & Output: Intake and Output for Last 24 Hours 10/16/22 10/17/22 10/18/22 23:59 23:59 23:59 Intake Total 3671.25 / 3671.25 4427.67 / 4427.67 Output Total 1550 / 3050 4525 / 4950 2200 / 2200 Balance 2121.25 / 621.25 -97.33 / -522.33 -2200 / -2200 Lab / Micro Data Result Diagrams: 10/16/22 06:05 10/17/22 06:15 Physical Exam Narrative alert, oriented x3, no apparent distress and healthy appearing General Appearance: cooperative, well kempt and well developed Orientation / Consciousness: awake, oriented to person, oriented to place and oriented to time HEENT normocephalic and moist oral mucous membranes Eyes PERRL, EOMs intact bilaterally and conjunctivae normal Neck supple, no JVD, thyroid normal and no carotid bruits General: trachea midline Resp normal respiratory effort and clear to auscultation bilaterally Auscultation: Negative for rales, rhonchi or wheezes Cardio regular rate, regular rhythm, no murmurs, no rub and no gallops GI normal to inspection, nondistended, normoactive bowel sounds, soft to palpation, non-tender and non-distended Extremity Extremity Narrative: Patient's right knee is in an immobilizer at this time Skin no rashes or lesions noted General Skin Exam: no breakdown Neuro oriented x3, CN's II-XII intact bilaterally, no focal motor deficits and no sensory deficits noted Sensorium / Orientation: awake, alert, oriented to person, oriented to place and oriented to time Speech: speech normal Psych Psych Narrative: Patient has a flat affect Assessment & Plan Assessment/Plan (1) Fracture, patella: PLAN: Plan 1. Right patellar fracture-postop day 2 open reduction and internal fixation right patella, PT and OT will continue to see the patient, he will need temporary placement in retirement facility at the time of discharge from the hospital. #2 elevated blood pressure-patient's blood pressure medications will continue, blood pressure appears to be under good control #3 acute debility secondary to right patellar fracture-PT and OT are seeing patient, he will need short-term placement in a retirement facility after discharge from the hospital. Total clinical time spent by myself addressing the patient's medical issues, reviewing all of his data, and collaborating with patient's care team: 35 minutes Charges/Coding Visit Charges Inpatient E&M: 05076 Subs Hosp L2
[2022-10-18 22:00] VITALS: RESP 22
[2022-10-18] MEDS: Ibuprofen 600 MG Tablet PO (22:55)
[2022-10-18 23:01] VITALS: BP 152/91; PULSE 125; RESP 22; TEMP 36.7; O2SAT 99
[2022-10-18] MEDS: diazePAM 5 MG Tablet PO (23:12)
[2022-10-18] MEDS: 0.9% Saline Lock 10 ML Syringe IV (23:13)
[2022-10-19 05:36] VITALS: BP 135/84; PULSE 93; RESP 18; TEMP 36.7; O2SAT 93
[2022-10-19] MEDS: Acetaminophen 500 MG Tablet 1000 MG PO ×3 (05:42→21:33)
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
[2022-10-19] MEDS: Famotidine 20 MG Tablet PO (08:51)
[2022-10-19] MEDS: diazePAM 5 MG Tablet PO (08:51)
[2022-10-19] MEDS: Lisinopril 40 MG Tablet PO (08:51)
[2022-10-19] MEDS: hydroCHLOROthiazide 25 MG Tablet PO (08:51)
--- NOTE | 2022-10-19 09:25 | NURSING ---
Pt requesting to speak with the Peter. I left a message requesting Peter Chilel to come see pt when he is back in his office.
[2022-10-19 11:21] VITALS: BP 140/92; PULSE 95; RESP 18; TEMP 36.7; O2SAT 95
[2022-10-19 14:00] VITALS: BP 129/88; PULSE 110; RESP 18; TEMP 36.6; O2SAT 95
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
[2022-10-19 21:25] VITALS: BP 138/94; PULSE 126; RESP 20; TEMP 36.3; O2SAT 96
[2022-10-19] MEDS: MELATONIN 3 MG TABLET PO (21:32)
[2022-10-19] MEDS: Ibuprofen 600 MG Tablet PO (21:33)
[2022-10-19] MEDS: 0.9% Saline Lock 10 ML Syringe IV (21:33)
[2022-10-19] MEDS: Enoxaparin 40 MG/0.4 ML Syringe SC (21:34)
[2022-10-20 01:25] VITALS: BP 122/80; PULSE 108; RESP 18; TEMP 36.4; O2SAT 95
[2022-10-20 06:14] VITALS: BP 134/77; PULSE 106; RESP 16; TEMP 36.5; O2SAT 94
[2022-10-20] MEDS: Acetaminophen 500 MG Tablet 1000 MG PO ×2 (06:17→14:06)
[2022-10-20] MEDS: 0.9% Saline Lock 10 ML Syringe IV (06:17)
--- NOTE | 2022-10-20 08:17 | CASEMGMT ---
Social Work Rigo Valiente reached out via [employer]. Precert has been obtained. SW notified . JOSÉ Silva
[2022-10-20 08:50] VITALS: BP 135/92; PULSE 99; RESP 18; TEMP 36.6; O2SAT 97
[2022-10-20] MEDS: Famotidine 20 MG Tablet PO (08:54)
[2022-10-20] MEDS: hydroCHLOROthiazide 25 MG Tablet PO (08:54)
[2022-10-20] MEDS: Lisinopril 40 MG Tablet PO (08:54)
[2022-10-20] MEDS: Enoxaparin 40 MG/0.4 ML Syringe SC (08:54)
--- NOTE | 2022-10-20 09:29 | PCM.TXEXTCAR ---
Diet Diet Order/Speech Therapy: 10/16/22 14:37 Diet: Regular - General Is pt able to select menu?: Yes Routine Orders/Code Status Suppository Type: Dulcolax 10mg Suppository Frequency: Daily PRN Code Status: Full Code Wound(s) scattered: Wound Type: scabbed areas RIGHT KNEE: Wound Type: Surgical Incision Therapies Weight Bearing: Weight bearing as tolerated Problem/Diagnosis (1) Fracture, patella: Status: Acute Code(s): S82.009A - Unspecified fracture of unspecified patella, initial encounter for closed fracture Allergies/Procedures Done in Hospital Allergies No Known Allergies Allergy (Verified 10/13/22 21:42) Type of Care/Length of Stay Estimated LOS: Convalescent Care Less Than 30 days Type of Care Needed: Skilled Rehab Potential: Good Prognosis: Good Additional Orders/Day of Discharge Day of Discharge: 10/20/22 Dietary and Speech Recommendations Dietitian Recommendations/Changes: Continue regular diet. Will d/c ensure compact w/ medpass. Discharge Plan Admission Admit Date/Time: 10/14/22 14:59 Primary Reason for Your Visit: Right patella fracture Attending Provider: Bairon Lennon Primary Care Provider: Daniel Dolan Consulting Providers: Mya Carranza ; Colin Good ; Jose Eduardo Boswell Discharge Orders/Prescriptions Prescriptions: New cyclobenzaprine 10 mg Tablet 10 mg PO TID PRN PRN (Reason: Muscle Spasm) Qty: 30 0RF sennosides-docusate sodium [Stool Softener-Stimulant Laxat] 8.6-50 mg Tablet 2 tab PO BID Qty: 0 0RF acetaminophen 500 mg Tablet 1,000 mg PO Q8 Qty: 0 0RF oxycodone 5 mg Tablet 2.5 mg PO Q4H PRN PRN (Reason: Pain Score 4-10) 3 Days Qty: 7 0RF Rx Instructions: 2.5 mg for moderate, 4-6/10 and 5 mg for severe 7-10/10 and duloxetine 30 mg Capsule,Delayed Release(Dr/Ec) 30 mg PO DAILY Qty: 0 0RF Referrals / Follow Up: Daniel Dolan MD [Primary Care Provider] - Disposition Disposition (needs filled in before D/C Order can be placed): Group Home Facility
[2022-10-20] MEDS: diazePAM 5 MG Tablet PO (09:50)
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
--- NOTE | 2022-10-20 11:56 | CASEMGMT ---
Social Work? THOMAS notified pt and pt family of discharge to [facility] today. Left message on pt's parent cell phone with discharge plans. THOMAS completed 7000 convalescent form in [facility]. Set up cot transportation through [facility] for 2:00 pm. THOMAS faxed all discharge orders to [facility] via [employer] and notified of discharge time. THOMAS notified pt nurse/architectural modeler of transport time. THOMAS made copies of discharge orders and placed on pt chart. Sent original orders in envelope with pt upon discharge.?Pt requesting a walker. THOMAS explained RN CM would come discuss this with pt. Updated RN CM of pt request. Disposition: [facility], skilled, convalescent, level of care? JOSÉ Silva
[2022-10-20 12:10] VITALS: BP 142/88; PULSE 105; RESP 20; TEMP 36.6; O2SAT 99
--- NOTE | 2022-10-20 12:18 | PHA.DC.MR ---
Pharmacy Service has performed discharge medication reconciliation for this patient upon transfer to [facility]. Home Medications acetaminophen 500 mg tablet 1,000 mg PO Q8 #0 tabs 10/20/22 cyclobenzaprine 10 mg tablet 10 mg PO TID PRN PRN Muscle Spasm #30 tabs 10/20/22 duloxetine 30 mg capsule,delayed release 30 mg PO DAILY #0 caps 10/20/22 hydrochlorothiazide 25 mg tablet 25 mg PO DAILY 30 days #30 tabs 10/20/22 lisinopril 40 mg tablet 40 mg PO DAILY 30 days #30 tabs 10/20/22 oxycodone 5 mg tablet 2.5 mg PO Q4H PRN PRN Pain Score 4-10 3 days #7 tabs 10/20/22 sennosides 8.6 mg-docusate sodium 50 mg tablet (Stool Softener-Stimulant Laxative) 2 tab PO BID #0 tabs 10/20/22 The patient's discharge medication list was reviewed for discrepancies and discrepancies were resolved.
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
--- NOTE | 2022-10-20 13:16 | NURSING ---
report called to [facility] and spoke with kiran johnson
[2022-10-20] MEDS: oxyCODONE 5 MG Tablet PO (14:10)
== END 2022-10-20 14:37 | disposition skilled nursing facility (03) | DRG 320 ==
LOC: ED 10-14 01:59 → MS3 10-14 02:14
PROVIDERS: Student in an Organized Health Care Education/Training Program; Admitting Provider Internal Medicine; Emergency Provider Emergency Medicine; PCP Family Medicine; Visit Provider Internal Medicine
PROC: 0QSD04Z Reposition Right Patella with Internal Fixation Device, Open Approach (ICD-10-PCS; CPT 27524; principal; 2022-10-16 09:45)
DX: S82.041A Displaced comminuted fracture of right patella, initial encounter for closed fracture (principal); Q87.40 Marfan syndrome, unspecified; R26.2 Difficulty in walking, not elsewhere classified; M51.36 Other intervertebral disc degeneration, lumbar region; F12.90 Cannabis use, unspecified, uncomplicated; I10 Essential (primary) hypertension; W19.XXXA Unspecified fall, initial encounter; R53.81 Other malaise; Z87.891 Personal history of nicotine dependence
CPT/HCPCS: 36415; 73560; 73564; 74176; 76000; 80048; 85025; 87426; 93005; 94668; 97110; 97129; 97130; 97162; 97166; 97530; 97535; 97802; 99285; C1713; J7120; A4216; J2405

== ENCOUNTER 2022-12-30 10:01 | Outpatient (RCR) | payer MEDICAID, SELFPAY ==
--- NOTE | 2022-12-30 13:06 | HP.PTEVAL_ITS ---
Patient's Visit Information CANDI VAN is a 37 year old M referred to Physical Therapy by Dr. Tam Pedro DO with a diagnosis of R patellar fx with ORIF. Date of Evaluation: 12/30/22 Physical Therapist: Enrrique Moreno DPT - Visit Plan Frequency: 3x /Week Duration: 6 Weeks Plan: Start with ROM progression, nustep--> bike, RLE strengthening, balance, gait progression. - Subjective Pt. is here today for his initial evaluation with diagnosis of R patellar fracture with ORIF. DOS: 10/16/22. Pt. went to a jail for ~5 weeks. He has now been home for ~4 weeks, but not doing therapy. He has tried walking in his home with FWW. He has stairs, but has not tried doing them. He lives with his father in his basement. He said he does not use the stairs to get in. He has been walking short distances to his bathroom, has a refrigerator down stairs that he uses as well. Has not been able to get in his shower due to difficulty with getting in/out. Pt. is hopeful to improve his strength, ROM, balance and gait in order to get back to all previous levels of function. - Pain R anterior knee Pain Intensity (Out of 10): 2 Pain Intensity Range: 0, 6 - Objective POSTURE: pt. has marked thoracic kyphosis in sitting and standing. He has heavier use of AD in stance. He is able to stand without AD, but is unstable. PALPATION: Pt. does not have much pain with palpation. He has normal healing incision. No calf pain. NEURO: Pt. has normal sensation in BLEs. Normal Achilles DTR of BLEs. ROM: R knee: 0-0-110deg, L knee: 0-0-129deg. Tightness noted in B hamstrings. MMT: RLE: ankle 5/5 throughout. Knee: ext 4+/55, flexion 4+/5; hip: flexion 4+/5, abd 4+/5, ext 4+/5. LLE: 5/5 throughout. Core strength- poor. GAIT: Pt. ambulates with FWW with heavy use of AD. Pt. has flexed posture and decreased step length bilaterally. Pt. was able to ambulate 112feet with reports of increased fatigue as limiting factor with gait. No increased in RLE pain during stance phase. BED MOBILITY: Pt. is able to complete without issues. - Balance/Special Test Scores Lower Extremity Functional Score: 10 - Goals Goal 1:: LTG: Pt. to be I with HEP. Goal Time Frame: 4-6 Weeks Goal 2:: STG: pt. to have R knee ROM greater than 0-0-120deg. Goal Time Frame: 2-4 Weeks Goal 3:: LTG: Pt. to have 5/5 strength throughout RLE allowing for increased ability to complete all functional activities. Goal Time Frame: 4-6 Weeks Goal 4:: STG: Pt. be able to ambulate greater than 350' with FWW AMARA allowing for safe ambulate in home and community. Goal Time Frame: 2-4 Weeks Goal 5:: LTG: Pt. to ambulate with LRD greater than 1000' with normalized pattern without increase in RLE pain. Goal Time Frame: 4-6 Weeks Goal 6:: LTG: pt. to negotiate steps with reciprocal pattern with 1 HR without increase in R knee pain. Goal Time Frame: 4-6 Weeks - Rehabilitation Potential Physical Therapy Diagnosis: Pt. has signs and symptoms consistent with R patellar fx with ORIF. DOS: 10/16/22. Pt. has some decreased RLE mobility, marked weakness and difficulty with his gait/mobility. He would benefit from PT to address the above limitations progressing back to all household and recreational activities without limitations. Rehabilitation Potential: Excellent - Anticipated Interventions Patient/Client Instruction: Educate patient on: Condition, Plan of Care, Risk Factors, Benefits of Fitness Program For the Purpose of:: To facilitate caregiver knowledge, To improve self manag ement, To prevent re-injury, To improve ability to perform tasks related to life management, To improve tolerance to ADL's Therapeutic Exercise to Include: Strength training, Power training, Endurance training, Coordination, Agility training, Body mechanics, Postural training, Flexibilty training, Gait and locomotor training, Passive ROM, Active ROM For the Purpose of:: To decrease pain, To increase ROM, To improve nutrient delivery to tissue, To increase oxygenation perfusion, To improve muscle performance and motor function, To improve ability to perform ADL's, To increase tolerance to activity/condition/position, To improve performance and independence with ADL's, To improve health of tissue, To decrease soft tissue restriction, To increase flexibility/ROM Thank you for the opportunity to evaluate your patient. For Medicare and Medicare HMO plans, please review the plan of care and approve it. It will need to be FAXED BACK to us at [phone] for Medicare purposes. For Medicare only, by signing this I certify the plan of care. Please let me know if there are questions or concerns regarding this plan of care. Physician Signature: Date:
== END 2022-12-30 19:00 | disposition home or self-care (01) ==
LOC: PT 10:01
PROVIDERS: PCP Family Medicine; Referring Provider Student in an Organized Health Care Education/Training Program; Visit Provider Student in an Organized Health Care Education/Training Program
DX: S82.041D Displaced comminuted fracture of right patella, subsequent encounter for closed fracture with routine healing (principal)
CPT/HCPCS: 97161

== ENCOUNTER 2023-02-19 12:27 | Emergency (ER) | payer MEDICAID, SELFPAY ==
[2023-02-19 12:29] VITALS: BP 144/80; PULSE 104; RESP 20; TEMP 35.9; O2SAT 96
--- NOTE | 2023-02-19 13:04 | MRI_ITS ---
STUDY: MRI LUMBAR SPINE WITHOUT CONTRAST REASON FOR EXAM: Male, 38 years old. Progressive BLE weakness TECHNIQUE: Standardized fat and water weighted pulse sequences were obtained in the sagittal and axial planes. Pre and postcontrast images obtained. Contrast: 27 mL Clariscan COMPARISON: : No relevant prior comparison study available FINDINGS: Vertebral bodies and alignment. 1. Vertebral body height and alignment are maintained. No evidence of marrow edema or occult fracture. Mild chronic wedging of the T12 vertebral body is noted. No marrow edema. 2. Paraspinous soft tissue planes have normal appearance. Normal appearance of the muscular fascial planes of the erector spinae. 3. Normal appearance of the sacrum and sacroiliac joints. 4. Diffuse narrowing of the spinal canal which can be seen in the setting of congenitally short pedicles. Additional mildly prominent posterior epidural lipomatosis is noted. 5. Diffuse enhancement of the epidural space, no tobias epidural fluid collections. Intervertebral disks levels. T12-L1: No evidence of disc herniation or focal canal stenosis, central canal maintained at 9 mm. Mild facet hypertrophic changes. Neural foramina are widely patent. L1-2: Disc desiccation, broad-based a LEFT posterior lateral disc protrusion with extruded disc material extending superiorly in the anterior epidural space. Central canal is narrowed to approximately 6 mm, there is narrowing of the LEFT lateral recess. Neural foramina are narrow bilaterally however no focal nerve root impingement identified. L2-3: Mild disc desiccation, no disc herniation noted. Facet hypertrophic changes are present. There is narrowing of the neural foramina bilaterally however no tobias nerve root impingement L3-4: No disc herniation canal or foraminal narrowing. There is facet hypertrophy. L4-5: Disc desiccation, broad-based chronic appearing disc bulge/borderline protrusion with deformity the anterior epidural space and mild compression of lateral recesses. Facet and ligament flavum hypertrophic changes are present. No evidence of central canal stenosis. Diffuse narrowing of the neural foramina without tobias nerve root impingement. L5-S1: Disc desiccation, broad-based disc bulge/borderline protrusion, there is a minimal grade 1 anterolisthesis of L5 on S1. There is narrowing of the neural foramina bilaterally with early impingement of the L5 nerve roots within the neural foramina bilaterally most clearly visualized on sagittal imaging. Spinal cord: Normal appearance of the spinal cord and conus. Conus is located at L1. Cauda equina has normal appearance with the exception of crowding and apparent tangling of nerve roots of the cauda equina particularly immediately posterior to the L1 vertebral body.. No evidence of cord compression or edema. No intramedullary signal abnormality noted. Normal visualized paraspinous soft tissue structures. MRI/Spine Lumbar W/WO Contrast IMPRESSION: 1. Diffusely narrow canal which can be seen in the setting of congenitally short pedicles. 2. Broad-based disc protrusion with a small amount of extruded disc material at L1-L2, disc material extends superiorly in the anterior epidural space with deformity of the thecal sac. Central canal narrowed to approximately 6 mm and compression of LEFT lateral recess. 3. Broad-based disc protrusion at L5-S1, mild degenerative anterolisthesis of L5 on S1. There is narrowing of neural foramina bilaterally with early L5 nerve root impingement within the neural foramina. 4. Multilevel facet hypertrophic changes. 5. No evidence tobias cord compression however significant crowding of nerve roots within the lumbar cistern as detailed. 6. No evidence of fracture destructive bony process. 7. There is diffuse enhancement of the epidural space however no tobias epidural fluid collections. No areas of abnormal intradural or intramedullary contrast abnormality. Areas of Electronically Signed: Raphael Lopez MD at 20:29 EDT ,
--- NOTE | 2023-02-19 13:05 | EDS_ITS ---
HPI <Dr. Dimitrios Walker MD - Last Filed: 02/19/23 16:13> History of Present Illness Chief Complaint: Weakness Informant: patient Narrative Narrative: Patient states he is having progressively worsening weakness and numbness in his lower extremities. This has been over 5 years. He had x-rays for this 3 years ago or so that were unremarkable, but he did not see his PCP for a while so took him a while to reestablish, saw him today for follow-up of a right knee injury that he had operated on earlier this year, and out of concern for the neurologic symptoms, was sent here for MRI of the lumbar spine. Patient states he is needing to use a walker now to get around. He denies any bowel or bladder dysfunction, saddle anesthesia but he does have altered sensation in both lower extremities. He denies having pain in his back. [facility] <Dr. Dimitrios Walker MD - Last Filed: 02/19/23 16:13> [facility] Medical History (Updated 02/19/23 @ 16:[address] Dimitrios Walker MD) Chronic pain Fracture, patella Inability to ambulate due to knee Mobility impaired Tobacco abuse Home Medications acetaminophen 500 mg tablet 1,000 mg (2 x 500 mg) PO Q8 #0 tabs 10/20/22 [Rx Last Taken Unknown] cyclobenzaprine 10 mg tablet 10 mg PO TID PRN PRN Muscle Spasm #30 tabs 10/20/22 [Rx Last Taken Unknown] duloxetine 30 mg capsule,delayed release 30 mg PO DAILY #0 caps 10/20/22 [Rx Last Taken Unknown] hydrochlorothiazide 25 mg tablet 25 mg PO DAILY 30 days #30 tabs 10/20/22 [Rx Last Taken Unknown] lisinopril 40 mg tablet 40 mg PO DAILY 30 days #30 tabs 10/20/22 [Rx Last Taken Unknown] oxycodone 5 mg tablet 2.5 mg (1/2 x 5 mg) PO Q4H PRN PRN Pain Score 4-10 3 days #7 tabs 10/20/22 [Rx Last Taken Unknown] sennosides 8.6 mg-docusate sodium 50 mg tablet (Stool Softener-Stimulant Laxative) 2 tab PO BID #0 tabs 10/20/22 [Rx Last Taken Unknown] Allergy/AdvReac Type Severity Reaction Status Date / Time No Known Allergies Allergy Verified 02/19/23 12:29 Family History (Updated 10/14/22 @ 02:[address] Mya Carranza DO) Other Cancer Diabetes Heart disease Social History (Updated 10/14/22 @ 02:[address] Mya Carranza DO) household members: none housing: apartment current occupational status: disabled Smoking Status: Former smoker alcohol intake: current alcohol intake frequency: holidays/special occasions only substance use type: marijuana ROS <Dr. Dimitrios Walker MD - Last Filed: 02/19/23 16:13> ROS ED Constitutional Constitutional ED: Denies chills or fever(s) Eyes Eyes: Denies change in vision or diplopia ENT ENT ED: Denies rhinorrhea or sore throat Cardiovascular Cardiovascular: Denies chest pain or palpitations Respiratory/Chest Respiratory/Chest: Denies cough or dyspnea Gastrointestinal Gastrointestinal: Denies abdominal pain, diarrhea, nausea or vomiting Genitourinary Genitourinary ED: Denies dysuria or hematuria Musculoskeletal Musculoskeletal: Denies back pain or neck pain Integumentary Denies abscess or rash Neurologic Neurologic: Reports paresthesias and weakness; Denies headache(s) Psychiatric Psychiatric: Denies anxiety or suicidal thoughts EXAM <Dr. Dimitrios Walker MD - Last Filed: 02/19/23 16:13> Physical Exam Const Vital Signs: 02/19/23 12:29 02/19/23 13:35 Temperature 96.7 F L Temperature Source Temporal Pulse Rate 104 H Respiratory Rate 20 H Respiratory Effort Normal Non-Labored Respiratory Pattern Normal Blood Pressure 144/80 H Blood Pressure Mean 101 Pulse Ox 96 Oxygen Delivery Method Room Air Positive well nourished and well developed General Appearance ED: well developed and NAD HEENT Reports moist mucous membranes normocephalic and atraumatic Eyes PERRL and EOMs intact bilaterally Neck full ROM and supple Resp normal respiratory effort and clear to auscultation bilaterally Cardio regular rate, regular rhythm and no murmurs GI non-tender and non-distended Auscultation: normoactive bowel sounds Palpation: soft Back/Spine no CVA tenderness General Back: other FROM Extremity normal to inspection General Extremety ED: Negative for edema, pulses abnormal or tenderness General Extremity: Negative for edema or pulses abnormal Neuro oriented x3 and CN's II-XII intact bilaterally Neuro Narrative: Altered sensation in the lower extremities throughout, although sensation is grossly intact and cap refill is brisk. Proximal weakness 4+/5 bilateral lower extremities, normal in the upper, he has normal reflexes although it is diminished on the right because he had reconstruction of the patellar ligament, and no clonus, downgoing toes bilaterally. Sensorium / Orientation: awake and alert Skin no rashes or lesions noted and no wounds <Dr. Kiki Ordonez MD - Last Filed: 02/19/23 20:59> Physical Exam Const Vital Signs: 02/19/23 12:29 02/19/23 13:35 Temperature 96.7 F L Temperature Source Temporal Pulse Rate 104 H Respiratory Rate 20 H Respiratory Effort Normal Non-Labored Respiratory Pattern Normal Blood Pressure 144/80 H Blood Pressure Mean 101 Pulse Ox 96 Oxygen Delivery Method Room Air MDM <Dr. Dimitrios Walker MD - Last Filed: 02/19/23 16:13> [facility] Narrative Medical decision making narrative: Labs noted, patient does have a leukocytosis which is not unusual for him, there is no leftward shift. He will get MRI of his lumbar spine when MRI can fit him in between outpatients. Lab Data Attestation: I reviewed the patient's lab results. Labs: Laboratory Results - last 24 hr 02/19/23 11:20 WBC 17.3 H RBC 5.44 Hgb 16.4 Hct 49.0 MCV 90.1 MCH 30.1 MCHC 33.5 RDW Std Deviation 40.9 RDW Coeff of Jacey 12.5 Plt Count 426 MPV 8.5 Immature Gran % (Auto) 0.800 Neut % (Auto) 67.2 Lymph % (Auto) 21.7 [place] % (Auto) 8.4 Eos % (Auto) 1.0 Baso % (Auto) 0.9 Absolute Neuts (auto) 11.7 H Absolute Lymphs (auto) 3.75 Nucleated RBC % 0 Sodium 135 L Potassium 4.2 Chloride 106 Carbon Dioxide 22.0 Anion Gap 7 BUN 13 Creatinine 0.96 Estim Creat Clear Calc 128.09 Est GFR (MDRD) Af Amer 113 Est GFR (MDRD) Non-Af 93 BUN/Creatinine Ratio 13.5 Glucose 117 H Calcium 9.5 <Dr. Kiki Ordonez MD - Last Filed: 02/19/23 20:59> [facility] Lab Data Labs: Laboratory Results - last 24 hr 02/19/23 11:20 WBC 17.3 H RBC 5.44 Hgb 16.4 Hct 49.0 MCV 90.1 MCH 30.1 MCHC 33.5 RDW Std Deviation 40.9 RDW Coeff of Jacey 12.5 Plt Count 426 MPV 8.5 Immature Gran % (Auto) 0.800 Neut % (Auto) 67.2 Lymph % (Auto) 21.7 [place] % (Auto) 8.4 Eos % (Auto) 1.0 Baso % (Auto) 0.9 Absolute Neuts (auto) 11.7 H Absolute Lymphs (auto) 3.75 Nucleated RBC % 0 Sodium 135 L Potassium 4.2 Chloride 106 Carbon Dioxide 22.0 Anion Gap 7 BUN 13 Creatinine 0.96 Estim Creat Clear Calc 128.09 Est GFR (MDRD) Af Amer 113 Est GFR (MDRD) Non-Af 93 BUN/Creatinine Ratio 13.5 Glucose 117 H Calcium 9.5 Treatment and Re-Evaluation :: Patient signed out to me pending MRI reading. MRI of the lumbar spine read returns with evidence of 1 diffusely narrow canal which can be seen in the setting of congenitally short pedicles. 2 broad based disc protrusion with small amount of extruded disc material at L1- L2, dismissed anteriorly extend superiorly in the anterior epidural space with deformity of the thecal sac. Central canal is narrowed approximate 6 mm in compression of the left lateral recess. 3. Broad-based disc protrusion at L5-S1 with mild degenerative anterolisthesis of L5 on S1. There is narrowing of the neural foramina bilaterally with early L5 nerve root impingement. 4. Multilevel facet hypertrophic changes. 5. No evidence of tobias cord compression, however significant crowding of nerve roots within the lumbar cistern is detailed. I went back and discussed the findings with the patient. 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 He admits to me that his symptoms have been very gradually noticed over the last 5 years. There was no recent worsening of symptoms. I do not believe he needs an emergent consult with a spine surgeon. I will refer him to Dr. Cheung and he will follow-up. Discharge Plan Triage Chief Complaint: Weakness ED Provider: Dimitrios Walker Dx/Rx/DC Orders Clinical Impression: Bilateral leg weakness, Numbness of both lower extremities Prescriptions: No Action cyclobenzaprine 10 mg Tablet 10 mg PO TID PRN PRN (Reason: Muscle Spasm) Qty: 30 0RF sennosides-docusate sodium [Stool Softener-Stimulant Laxat] 8.6-50 mg Tablet 2 tab PO BID Qty: 0 0RF acetaminophen 500 mg Tablet 1,000 mg PO Q8 Qty: 0 0RF oxycodone 5 mg Tablet 2.5 mg PO Q4H PRN PRN (Reason: Pain Score 4-10) 3 Days Qty: 7 0RF Rx Instructions: 2.5 mg for moderate, 4-6/10 and 5 mg for severe 7-10/10 and duloxetine 30 mg Capsule,Delayed Release(Dr/Ec) 30 mg PO DAILY Qty: 0 0RF hydrochlorothiazide 25 mg Tablet 25 mg PO DAILY 30 Days Qty: 30 0RF lisinopril 40 mg Tablet 40 mg PO DAILY 30 Days Qty: 30 0RF Primary Care Provider: Daniel Dolan Referrals: Clive Cheung DO [Med Staff - Active Staff] - As soon as possible Daniel Dolan MD [Primary Care Provider] - Disposition Disposition: Home, Self Care
[2023-02-19 13:20] VITALS: BMI 39.0
[2023-02-19 13:27] LABS: Absolute Lymphocyte Count 3.75 X10^3/uL (0.83-4.51); Absolute Neutrophil Count 11.7 X10^3/uL (2.0-7.7); Basophil# 0.16 X10^3/uL; Basophil% 0.9 % (0-1); Eosinophil# 0.17 X10^3/uL; Hemoglobin 16.4 g/dL (13.0-16.5); Lymphocyte # 3.75 X10^3/ul (0.83-4.51); Lymphocyte % 21.7 % (19-41); Mean Corp Hgb Conc 33.5 g/dL (32-36); Mean Corpuscular Hgb 30.1 pg (27.0-32.0); Mean Corpuscular Volume 90.1 fL (80-94); Mean Platelet Vol. 8.5 fl (6.2-12.0); Monocyte# 1.46 X10^3/uL; Monocyte% 8.4 % (0-10); NRBC Flagged by Analyzer 0 % (0-5); Neutrophil # 11.65 X10^3/uL (2.7-7.7); Neutrophil % 67.2 % (47-70); Platelet Count 426 K/mm3 (150-450); RBC Distribution Width CV 12.5 % (11.6-14.6); RBC Distribution Width SD 40.9 fl (35.1-43.9); Red Blood Count 5.44 M/mm3 (4.6-6.2); White Blood Count 17.3 K/mm3 (4.4-11.0)
[2023-02-19 13:39] LABS: Anion Gap 7 (5-15); BUN 13 mg/dL (7-18); BUN/Creat Ratio 13.5 RATIO (10-20); Calcium,Total 9.5 mg/dL (8.5-10.1); Chloride 106 mmol/L (98-107); Creatinine, Serum 0.96 mg/dL (0.70-1.30); EST Glomerular Filtration Rate 93 mL/min (>60); Est Glom Filt Rate - Afr Amer 113 mL/min (>60); Estimated Creatinine Clearance 128.09 ml/min; Glucose 117 mg/dL (74-106); Potassium 4.2 mmol/L (3.5-5.1); Sodium Level 135 mmol/L (136-145)
--- NOTE | 2023-02-19 14:52 | ED.RN ---
pt was frustrated with MRI questionaire and for not having order for MRI on arrival. explained that procedure is planned for 1600 and meal given.
--- NOTE | 2023-02-19 20:53 | ED.RN ---
called to inquire about MRI. CT states they will walk report over.
[2023-02-19 21:12] VITALS: BP 197/97; PULSE 74; RESP 16; O2SAT 96
[2023-02-19 21:14] VITALS: BP 197/97; PULSE 74; RESP 16; O2SAT 97
== END 2023-02-19 21:16 | disposition home or self-care (01) ==
PROVIDERS: Emergency Provider Emergency Medicine; PCP Family Medicine; Visit Provider Emergency Medicine
DX: R53.1 Weakness (principal); Z87.891 Personal history of nicotine dependence; R20.0 Anesthesia of skin
CPT/HCPCS: 72158; 80048; 85025; 99282; A9575; A4216

== ENCOUNTER 2023-09-08 12:39 | Observation (INO) | payer MEDICAID, SELFPAY ==
[2023-09-08 12:41] VITALS: BP 161/98; PULSE 121; RESP 18; TEMP 35.9; O2SAT 98; BMI 40.3
--- NOTE | 2023-09-08 13:31 | RAD_ITS ---
HISTORY: Trauma. TECHNIQUE: XR Tibia/Fibula 2 Views. COMPARISON: 10/13/2022. FINDINGS: BONES : Plate and screw fixation of the comminuted patellar fracture with interval bony bridging and partial fracture planes still visible. Disuse osteopenia identified in the leg. JOINTS: No dislocation. Joint spaces maintained. RAD/Tibia & Fibula 2 Views IMPRESSION: ORIF healing patellar fracture. No acute fracture or dislocation identified in the right leg. Electronically Signed: Lyn Mackey MD at 14:12 EST ,
[2023-09-08] MEDS: oxyCODONE 5 MG Tablet 2.5 MG PO (13:38)
--- NOTE | 2023-09-08 13:40 | RAD_ITS ---
HISTORY: trauma. TECHNIQUE: XR Ankle Min 3 Views. COMPARISON: None. FINDINGS: BONES : Small vertically oriented linear lucencies of the distal tibia on one view only. Generalized osteopenia. JOINTS: No dislocation. Joint spaces maintained. SOFT TISSUES: Mild soft tissue swelling. RAD/Ankle min 3 Views IMPRESSION: Possible nondisplaced fracture of the right distal tibia. Electronically Signed: Lyn Mackey MD at 14:10 EST ,
--- NOTE | 2023-09-08 14:22 | CT_ITS ---
HISTORY: Possible nondisplaced distal tibia fracture. TECHNIQUE: Helically acquired images were obtained of the right leg. 2-D reformats were performed by the technologist. A radiation dose optimization technique was used for this scan.IV Contrast dosage and agent: None. 621 images. COMPARISON: XR same day. FINDINGS: BONES: Cortical plate and screw fixation of healing and nondisplaced horizontal patellar fracture with mild sclerosis at the fracture site. Acute nondisplaced fracture of the distal tibia laterally with intra-articular extension. Disuse osteopenia noted. Small bone island of the calcaneus. JOINT SPACES: No dislocation. SOFT TISSUES: Venous varicosities noted. Mild soft tissue swelling of the ankle. CT/Extremity Lower without Contra IMPRESSION: Acute nondisplaced intra-articular fracture of the right distal tibia laterally. Electronically Signed: Lyn Mackey MD at 15:01 EST ,
--- NOTE | 2023-09-08 14:37 | ED.VIS.FALL ---
HPI HPI - Fall History of Present Illness Chief Complaint: Fall Narrative Narrative: 38-year-old male past medical history of possible multiple sclerosis, has to use a walker for ambulation, presents status post fall. He states he was getting ready to go to the neurologist at the [facility], when he was using his walker and walking across the lawn. There is a steeper pitch upward which caused him to fall. He had become weak in the knees, and fell, injuring his right ankle. He states he does not necessarily have a lot of pain in his ankle because of neuropathy, but noticed some swelling laterally. He also has pain radiating upward towards his knee. He does have history of patellar fracture and ORIF performed by Dr. Pedro. He denies hitting his head or loss of consciousness, no other injury. He was a unable to get up fully and EMS was called to bring him to the emergency department for evaluation of his right ankle injury. He denies any foot pain. No hip pain. [facility] Medical History Chronic pain Fracture, patella Inability to ambulate due to knee Mobility impaired Tobacco abuse Home Medications acetaminophen 500 mg tablet 1,000 mg (2 x 500 mg) PO Q8 #0 tabs 10/20/22 [Rx Last Taken Unknown] cyclobenzaprine 10 mg tablet 10 mg PO TID PRN PRN Muscle Spasm #30 tabs 10/20/22 [Rx Last Taken Unknown] duloxetine 30 mg capsule,delayed release 30 mg PO DAILY #0 caps 10/20/22 [Rx Last Taken Unknown] hydrochlorothiazide 25 mg tablet 25 mg PO DAILY 30 days #30 tabs 10/20/22 [Rx Last Taken Unknown] lisinopril 40 mg tablet 40 mg PO DAILY 30 days #30 tabs 10/20/22 [Rx Last Taken Unknown] oxycodone 5 mg tablet 2.5 mg (1/2 x 5 mg) PO Q4H PRN PRN Pain Score 4-10 3 days #7 tabs 10/20/22 [Rx Last Taken Unknown] sennosides 8.6 mg-docusate sodium 50 mg tablet (Stool Softener-Stimulant Laxative) 2 tab PO BID #0 tabs 10/20/22 [Rx Last Taken Unknown] lisinopril 10 mg tablet 10 mg PO DAILY BLOOD PRESSURE 09/08/23 [History Last Taken Unknown] Allergy/AdvReac Type Severity Reaction Status Date / Time No Known Allergies Allergy Verified 09/08/23 12:44 Family History Other Cancer Diabetes Heart disease Social History household members: none housing: apartment current occupational status: disabled Smoking Status: Current every day smoker tobacco type: cigarettes alcohol intake: current alcohol intake frequency: holidays/special occasions only substance use type: marijuana ROS ROS ED ROS Narrative Constitutional: No fever, no chills. HEENT: No sore throat. No neck pain. No loss of vision. No rhinorrhea. Cardiovascular: No chest pain. No palpitations. No pedal edema. Respiratory: No cough, no shortness of breath. Abdominal: No abdominal pain. No nausea. No vomiting. Genitourinary: No dysuria. No hematuria. Musculoskeletal: No myalgias. Right ankle pain and lateral swelling. No foot pain, right, no hip pain. Neurologic: No headaches. No dizziness. No lightheadedness. Skin: No rash. No change in color. Psychiatric: No depression. No anxiety. EXAM Physical Exam Narrative Exam Narrative: Afebrile. Vital signs noted. GCS 15. ABCs intact. HEENT: Normocephalic. Atraumatic. PERRL, EOMI. Neck soft and supple. No point tenderness or step off. Cardiovascular: Regular rate and rhythm. No murmurs, rubs, or gallops appreciated. Respiratory: No tachypnea. Lungs clear to auscultation bilaterally. Gastrointestinal: Abdomen soft, nontender, with normoactive bowel sounds. No rebound or guarding. Neurological: Awake. Alert. Nonfocal, nonlateralizing. Skin: No rash. Normal color. No pallor. Musculoskeletal: No pedal edema. Mild swelling of right lateral malleolus and talofibular ligament area. Palpable dorsalis pedis pulse right. Able to flex and extend right knee. Pelvis stable. No pain with logrolling of right femur. Const Vital Signs: 09/08/23 12:41 09/08/23 12:47 Temperature 96.6 F L Temperature Source Temporal Pulse Rate 121 H Respiratory Rate 18 Respiratory Effort Normal Blood Pressure 161/98 H Blood Pressure Mean 119 Pulse Ox 98 Oxygen Delivery Method Room Air Room Air MDM MDM MDM Narrative Medical decision making narrative: In the differential diagnosis is right ankle sprain versus fracture. Patient was complaining of pain more in the proximal tibia as well, or at least that radiated there so x-rays of the tibia and fibula in 2 views was obtained. On my interpretation of the tibia and fibula x-ray, I see no evidence of an acute fracture. On my interpretation of his right ankle x-rays, I see no malalignment or displaced fracture. I reviewed the radiology report which states there is a possible nondisplaced fracture of the distal tibia. Patient was given 2.5 mg of oxycodone for analgesia which he usually takes or is listed in his home meds. CT of the right ankle/tibia to distal tibia will be obtained to help rule out fracture. I reviewed the radiology report from the CT of the tibia which does show an intra-articular nondisplaced fracture of the distal tibia laterally. When I told the patient of the CT results, and that I would contact Dr. Pedro who is on-call for their group regarding immobilization, patient states that he is unable to ambulate at home, and needs to be placed in a custodial again. His family member agrees with this as he is unable to get up and down stairs especially with his new injury. I will discuss immobilization with Dr. Pedro, then discussed patient with Dr. Carranza for observation. I ordered a CBC and a CMP has baseline laboratories. Disposition is admission for placement in rehab/jail facility. Patient is in stable condition. History & Record Review Discussion w/independent historian: Patient and Family Additional record(s) reviewed:: Prior ED visit Lab Data Attestation: I reviewed the patient's lab results. Labs: Laboratory Results - last 24 hr 09/08/23 15:15 WBC 18.6 H RBC 5.15 Hgb 15.5 Hct 45.3 MCV 88.0 MCH 30.1 MCHC 34.2 RDW Std Deviation 41.9 RDW Coeff of Jacey 12.9 Plt Count 419 MPV 8.7 Immature Gran % (Auto) 0.600 Neut % (Auto) 75.0 H Lymph % (Auto) 15.4 L Adams % (Auto) 7.8 Eos % (Auto) 0.4 Baso % (Auto) 0.8 Absolute Neuts (auto) 14.0 H Absolute Lymphs (auto) 2.87 Nucleated RBC % 0 Radiography Diagnostic Testing: Clinical Impression(s) from Imaging Studies Tibia/Fibula X-Ray 09/08/23 13:31 IMPRESSION: ORIF healing patellar fracture. No acute fracture or dislocation identified in the right leg. Electronically Signed: Lyn Mackey MD at 14:12 EST , Ankle X-Ray 09/08/23 13:40 IMPRESSION: Possible nondisplaced fracture of the right distal tibia. Electronically Signed: Lyn Mackey MD at 14:10 EST , Lower Extremity CT 09/08/23 14:22 IMPRESSION: Acute nondisplaced intra-articular fracture of the right distal tibia laterally. Electronically Signed: Lyn Mackey MD at 15:01 EST , Management Discussion w/another healthcare provider: Hospitalist (Dr. Carranza) and Welder Fitter Helper (Dr. Pedro, orthopedics) Procedures Lower Extremity Splints Lower Extremity Splint: Orthoglass and Amor Vargas Splint Fabrication: Fabricated Location: Right Discharge Plan Dx/Rx/DC Orders Clinical Impression: Generalized weakness, Fracture of distal end of right tibia, Neuropathy, Fall Disposition Disposition: [facility]
[2023-09-08] MEDS: Ondansetron 4 MG/2 ML Vial IV (15:22)
[2023-09-08] MEDS: Morphine 4 MG/ML Syringe IV (15:22)
--- NOTE | 2023-09-08 15:30 | HP.PCM.HOS_ITS ---
HPI - General General Date of Admission: 09/08/23 Date of Service: 09/08/23 Chief Complaint: Mechanical fall with resulting right ankle pain HPI Narrative CANDI VAN, is a 38 M who presented to the emergency department at [facility] on 09/08/2023 after sustaining a fall with resultant right ankle pain. The patient is following with a neurologist at the [facility] and they are currently working up for possible MS. He was using his walker and walking across the lawn and there is a steep pitched upwards which caused him to fall. He fell injuring his right ankle. He has neuropathy and does not particularly have a ton of pain but noticed some significant swelling on the lateral aspect of his ankle that radiates up towards his knee. He does have a history of patellar fracture with previous ORIF done by Dr. Pedro. He had no other injury. [facility] Medical History Chronic pain Fracture, patella Inability to ambulate due to knee Mobility impaired Tobacco abuse Home Medications acetaminophen 500 mg tablet 1,000 mg (2 x 500 mg) PO Q8 #0 tabs 10/20/22 [Rx Last Taken Unknown] cyclobenzaprine 10 mg tablet 10 mg PO TID PRN PRN Muscle Spasm #30 tabs 10/20/22 [Rx Last Taken Unknown] duloxetine 30 mg capsule,delayed release 30 mg PO DAILY #0 caps 10/20/22 [Rx Last Taken Unknown] hydrochlorothiazide 25 mg tablet 25 mg PO DAILY 30 days #30 tabs 10/20/22 [Rx Last Taken Unknown] lisinopril 40 mg tablet 40 mg PO DAILY 30 days #30 tabs 10/20/22 [Rx Last Taken Unknown] oxycodone 5 mg tablet 2.5 mg (1/2 x 5 mg) PO Q4H PRN PRN Pain Score 4-10 3 days #7 tabs 10/20/22 [Rx Last Taken Unknown] sennosides 8.6 mg-docusate sodium 50 mg tablet (Stool Softener-Stimulant Laxative) 2 tab PO BID #0 tabs 10/20/22 [Rx Last Taken Unknown] lisinopril 10 mg tablet 10 mg PO DAILY BLOOD PRESSURE 09/08/23 [History Last Taken Unknown] Allergy/AdvReac Type Severity Reaction Status Date / Time No Known Allergies Allergy Verified 09/08/23 12:44 Family History Other Cancer Diabetes Heart disease Social History household members: none housing: apartment current occupational status: disabled Smoking Status: Current every day smoker tobacco type: cigarettes alcohol intake: current alcohol intake frequency: holidays/special occasions only substance use type: marijuana Vital Signs Vital Signs Vital Signs: 09/08/23 12:41 09/08/23 12:47 Temperature 96.6 F L Temperature Source Temporal Pulse Rate 121 H Respiratory Rate 18 Respiratory Effort Normal Blood Pressure 161/98 H Blood Pressure Mean 119 Pulse Ox 98 Oxygen Delivery Method Room Air Room Air Weight Weight: 150.2 kg Body Mass Index (BMI) 40.3 Results Lab / Micro Data 09/08/23 15:15 09/08/23 15:15 Imaging Radiology Impression Tibia/Fibula X-Ray 09/08/23 13:31 IMPRESSION: ORIF healing patellar fracture. No acute fracture or dislocation identified in the right leg. Electronically Signed: Lyn Mackey MD at 14:12 EST , Ankle X-Ray 09/08/23 13:40 IMPRESSION: Possible nondisplaced fracture of the right distal tibia. Electronically Signed: Lyn Mackey MD at 14:10 EST , Lower Extremity CT 09/08/23 14:22 IMPRESSION: Acute nondisplaced intra-articular fracture of the right distal tibia laterally. Electronically Signed: Lyn Mackey MD at 15:01 EST , Assessment & Plan Assessment/Plan (1) Fall: (2) Fracture of distal end of right tibia: (3) Generalized weakness:
--- NOTE | 2023-09-08 15:30 | PCM.HP.STD ---
HPI - General General Date of Admission: 09/08/23 Date of Service: 09/08/23 Chief Complaint: Mechanical fall with resulting right ankle pain HPI Narrative CANDI VAN, is a 38 M who presented to the emergency department at [facility] on 09/08/2023 after sustaining a fall with resultant right ankle pain. The patient is following with a neurologist at the [facility] and they are currently working up for possible MS. He was using his walker and walking across the lawn and there is a steep pitched upwards which caused him to fall. He fell injuring his right ankle. He has neuropathy and does not particularly have a ton of pain but noticed some significant swelling on the lateral aspect of his ankle that radiates up towards his knee. He does have a history of patellar fracture with previous ORIF done by Dr. Pedro. He had no other injury. Vital signs on presentation show a temperature of 98.2, blood pressure is 120/86, heart rate was 112, respiratory was 20 and oxygen saturations were 96% room air. CBC shows a leukocytosis and a left shift but is otherwise normal. Patient has no signs of infection I suspect this is related to the above is a stress response. Coags are normal. Chemistry panel shows mild blood sugar elevation but is otherwise unremarkable. Right tibia-fibula x-ray shows healing ORIF of the right patella and no acute fracture or dislocation. Ankle x-ray shows possible nondisplaced fracture of the right distal tibia and CT shows acute nondisplaced intra-articular fracture of the right distal tibia laterally. The case was discussed with Dr. Pedro who was in the operating room and will review the images and see the patient in consultation on the floor. The initial plan was to splint and send him home for outpatient follow-up however patient and family are concerned about his mobility at home and would like him evaluated for possible placement. [facility] Medical History Anxiety Chronic pain Depression Former smoker Fracture, patella Hypertension Inability to ambulate due to knee Migraines Mobility impaired Tobacco abuse Home Medications lisinopril 10 mg tablet 10 mg PO DAILY BLOOD PRESSURE 09/08/23 [History Last Taken Unknown] Allergy/AdvReac Type Severity Reaction Status Date / Time No Known Allergies Allergy Verified 09/08/23 12:44 Family History Other Cancer Diabetes Heart disease Social History (Updated 09/08/23 @ 16:[address] Mya Carranza DO) household members: none housing: apartment current occupational status: disabled Smoking Status: Former smoker alcohol intake: current alcohol intake frequency: holidays/special occasions only substance use type: does not use and other details: History of marijuana use ROS Constitutional Constitutional: Reports fatigue, malaise and weakness; Denies anorexia, change in weight, chills, fever(s), night sweats or other Eyes Eyes: Denies blurry vision, change in eye color, change in vision, discharge from eye(s), double vision, erythema, eye pain, loss of vision or other ENT HEENT: Denies abnormal hearing, dysphagia, ear pain, epistaxis, headache(s), hearing loss, nasal congestion, nasal discharge, post nasal drip, sinus pressure, sore throat or other Cardiovascular Cardiovascular: Denies chest pain, claudication, dyspnea on exertion, edema, lightheadedness, orthopnea, palpitations, paroxysmal nocturnal dyspnea, rapid heart rate, syncope or other Respiratory/Chest Respiratory/Chest: Denies cough, dyspnea, excessive phlegm production, hemoptysis, productive cough, shortness of breath at rest, shortness of breath with exertion, wheezing or other Gastrointestinal Gastrointestinal: Denies abdominal pain, coffee ground emesis, constipation, diarrhea, dyspepsia, hematemesis, hematochezia, loose stools, melena, nausea, vomiting or other Genitourinary Genitourinary: Denies burning urination, difficulty urinating, dysuria, hematuria, nocturia, urinary frequency, urinary hesitancy, urinary incontinence, urinary urgency or other Musculoskeletal Musculoskeletal: Reports joint stiffness; Denies arthralgias, back pain, joint pain, joint swelling, myalgias, neck pain or other Neurologic Neurologic: Reports abnormal gait, focal weakness, numbness, paresthesias and tingling Psychiatric Psychiatric: Denies anxiety, depression, homicidal ideation, suicidal ideation or other Endocrine Endocrinology: Denies change in body appearance, cold intolerance, excessive sweating, heat intolerance, polydipsia, polyuria or other Hematologic/Lymphatic Hematologic/Lymphatic: Denies anemia, easy bleeding, easy bruising, lymphadenopathy or other Allergic/Immunologic Allergic/Immunologic: Denies rhinitis, hives, eczemia, asthma or other Vital Signs Vital Signs Vital Signs: 09/08/23 12:41 09/08/23 12:47 Temperature 96.6 F L Temperature Source Temporal Pulse Rate 121 H Respiratory Rate 18 Respiratory Effort Normal Blood Pressure 161/98 H Blood Pressure Mean 119 Pulse Ox 98 Oxygen Delivery Method Room Air Room Air Weight Weight: 150.2 kg Body Mass Index (BMI) 40.3 Physical Exam Const alert, oriented x3, no apparent distress and well nourished; Negative for average body habitus or healthy appearing Constitutional Narrative: Morbidly obese, middle-aged, white male, sitting up in bed, family at bedside, patient appears comfortable and nontoxic HEENT normocephalic, head/scalp atraumatic and hearing grossly normal bilaterally HEENT Narrative: Dentition is poor, Mallampati is 3, no thrush Resp normal respiratory effort, no retractions, no use of accessory muscles and clear to auscultation bilaterally Auscultation: Negative for rales, rhonchi or wheezes Cardio regular rate, regular rhythm, S1 normal heart sound, S2 normal heart sound, no murmurs, no rub, no gallops and no clicks GI normal to inspection, nondistended, normoactive bowel sounds, soft to palpation and non-tender Extremity Extremity Narrative: Right lower extremity in a splint with 2+ cap refill, left lower extremity with 2+ pedal pulses, no edema noted on the left side, no cyanosis or clubbing Neuro oriented x3 Speech: speech normal Psych Psych Narrative: Affect is flat and interaction is strange Results Lab / Micro Data 09/08/23 15:15 09/08/23 15:15 Imaging Radiology Impression Tibia/Fibula X-Ray 09/08/23 13:31 IMPRESSION: ORIF healing patellar fracture. No acute fracture or dislocation identified in the right leg. Electronically Signed: Lyn Mackey MD at 14:12 EST , Ankle X-Ray 09/08/23 13:40 IMPRESSION: Possible nondisplaced fracture of the right distal tibia. Electronically Signed: Lyn Mackey MD at 14:10 EST , Lower Extremity CT 09/08/23 14:22 IMPRESSION: Acute nondisplaced intra-articular fracture of the right distal tibia laterally. Electronically Signed: Lyn Mackey MD at 15:01 EST , Assessment & Plan Assessment/Plan (1) Fall: (2) Fracture of distal end of right tibia: (3) Generalized weakness: (4) Hyperglycemia: PLAN: Plan Right distal tibia fracture -Fracture appears articular and I suspect will need surgical intervention -N.p.o. after midnight -Surgical risk is low due to age and no significant comorbidities which would increase risk -Coags are unremarkable -Scheduled Tylenol -As needed oxycodone with as needed Dilaudid for breakthrough -Start scheduled Colace -As needed senna -Nonweightbearing right lower extremity -Consult orthopedic surgeon--> ED discussed case with Dr. Pedro Hyperglycemia -Check hemoglobin A1c -May be elevated due to acute stress Generalized weakness -Patient is currently being worked up by neurology for possible MS versus other neurological process -Had appointment today at neurology at [facility] which will need to be rescheduled -PT/OT consultation postoperatively if surgery required -Case management/social work consulted as patient is requesting placement at discharge Progressive neuromuscular weakness -Had appointment today at [facility] which will need to be rescheduled--> patient states that wherever he goes for rehab will need to get him up there for his appointment Morbid obesity -BMI is 40.3 -Recommend weight loss -Complicates treatment, prognosis, outcomes DVT prophylaxis -Lovenox 40 mg twice daily to start tomorrow evening in case surgical intervention is required CODE STATUS Full code Charges/Coding Visit Charges Inpatient E&M: 22945 Init Hosp L2
[2023-09-08 15:33] LABS: Absolute Lymphocyte Count 2.87 X10^3/uL (0.83-4.51); Basophil# 0.14 X10^3/uL; Basophil% 0.8 % (0-1); Eosinophil# 0.07 X10^3/uL; Eosinophils% 0.4 % (0-5); Hematocrit 45.3 % (40-54); Hemoglobin 15.5 g/dL (13.0-16.5); Lymphocyte # 2.87 X10^3/ul (0.83-4.51); Lymphocyte % 15.4 % (19-41); Mean Corp Hgb Conc 34.2 g/dL (32-36); Mean Corpuscular Hgb 30.1 pg (27.0-32.0); Mean Platelet Vol. 8.7 fl (6.2-12.0); Monocyte# 1.46 X10^3/uL; Monocyte% 7.8 % (0-10); NRBC Flagged by Analyzer 0 % (0-5); Neutrophil # 13.99 X10^3/uL (2.7-7.7); Platelet Count 419 K/mm3 (150-450); RBC Distribution Width CV 12.9 % (11.6-14.6); RBC Distribution Width SD 41.9 fl (35.1-43.9); Red Blood Count 5.15 M/mm3 (4.6-6.2); White Blood Count 18.6 K/mm3 (4.4-11.0)
[2023-09-08 15:41] LABS: Anion Gap 7 (5-15); BUN 10 mg/dL (7-18); BUN/Creat Ratio 11.7 RATIO (10-20); Calcium,Total 9.2 mg/dL (8.5-10.1); Chloride 107 mmol/L (98-107); Creatinine, Serum 0.86 mg/dL (0.70-1.30); EST Glomerular Filtration Rate 106 mL/min (>60); Est Glom Filt Rate - Afr Amer 128 mL/min (>60); Estimated Creatinine Clearance 184.76 ml/min; Glucose 148 mg/dL (74-106); Potassium 3.9 mmol/L (3.5-5.1); Sodium Level 136 mmol/L (136-145)
[2023-09-08 15:56] VITALS: BP 160/80; PULSE 90; RESP 18; TEMP 36.6; O2SAT 99
[2023-09-08 16:15] VITALS: BP 120/86; PULSE 112; RESP 20; TEMP 36.8; O2SAT 96
[2023-09-08 16:15] LABS: Partial Thromboplast Time 25.5 Seconds (24.1-36.2); Prothrombin Time (Protime)PT. 13.4 SECONDS (11.7-14.9)
[2023-09-08 17:26] LABS: Hemoglobin A1c 6.4 % (3.8-5.6)
--- NOTE | 2023-09-08 18:33 | CON.PCM.OR_ITS ---
HPI Consult Data Date of Consult: 09/08/23 HPI Narrative Reason for Consultation: Right ankle fracture HPI Narrative: CANDI VAN, is a 38 M who presents after a mechanical fall earlier today when he was attempting to exit his home. He was walking on the grass and slipped and fell with a twisting injury to his right ankle. Patient has lower extremity weakness and is following with a neurologist at [facility] for possible multiple sclerosis. Patient is using a walker to ambulate prior to this injury. Patient is known to me from a right patella fracture requiring ORIF on 10/16/2022. Patient reports multiple ankle sprains in the past to both ankles. He denies any new numbness or tingling. Denies any other injuries. Familia farah is concerned about his ability to go home given the nonweightbearing status of the right lower extremity with this injury. [facility] Medical History Anxiety Chronic pain Depression Former smoker Fracture, patella Hypertension Inability to ambulate due to knee Migraines Mobility impaired Tobacco abuse Home Medications lisinopril 10 mg tablet 10 mg PO DAILY BLOOD PRESSURE 09/08/23 [History Last Taken Unknown] Allergy/AdvReac Type Severity Reaction Status Date / Time No Known Allergies Allergy Verified 09/08/23 12:44 Family History Other Cancer Diabetes Heart disease Social History (Updated 09/08/23 @ 16:[address] Mya Carranza DO) household members: none housing: apartment current occupational status: disabled Smoking Status: Former smoker alcohol intake: current alcohol intake frequency: holidays/special occasions only substance use type: does not use and other details: History of marijuana use ROS ROS Narrative 12 point review systems obtained, negative as otherwise noted in HPI. Vital Signs Vital Signs Vital Signs: 09/08/23 12:41 09/08/23 12:47 09/08/23 15:56 Temperature 96.6 F L 97.9 F Temperature Source Temporal Pulse Rate 121 H 90 Respiratory Rate 18 18 Respiratory Effort Normal Respiratory Depth Respiratory Pattern Blood Pressure 161/98 H 160/80 H Blood Pressure Mean 119 106 Blood Pressure Source Blood Pressure Position Blood Pressure Location Pulse Ox 98 99 Oxygen Delivery Method Room Air Room Air 09/08/23 16:15 09/08/23 16:37 09/08/23 17:34 Temperature 98.2 F Temperature Source Oral Pulse Rate 112 H Respiratory Rate 20 H Respiratory Effort Normal Respiratory Depth Normal Respiratory Pattern Normal Blood Pressure 120/86 H Blood Pressure Mean 97 Blood Pressure Source Monitor Blood Pressure Position Semi-Fowlers Blood Pressure Location Left Arm Pulse Ox 96 Oxygen Delivery Method Room Air Room Air Room Air Weight Weight: 331 lb 2.149 oz Body Mass Index (BMI) 40.3 Physical Exam Narrative General -A&Ox3, NAD, appears stated age. Vital signs stable, afebrile. Respiratory -normal work of breathing, no intercostal retractions. CV -pulses regular, brisk capillary refill ?4 limbs. Abdomen-soft, nontender, nondistended. No guarding, rigidity, rebound tenderness. Musculoskeletal/neurologic -full range of motion nontender throughout bilateral upper extremities, left lower extremity with full sensation and strength in all dermatomes and myotomes. No midline cervical tenderness. Right lower extremity-3 sided short leg splint in place clean dry and intact. Wiggles toes on command. Palpable DP pulse. Brisk capillary fill in toes. No pain with passive stretch of the toes. Palpable compartments are soft and compressible. Minimally tender about the knee. No apparent knee effusion. Anterior right knee incision is well-healed without erythema. Lab / Micro Data 09/08/23 15:15 09/08/23 15:15 Labs: Laboratory Results - last 24 hr 09/08/23 15:15: WBC 18.6 H, RBC 5.15, Hgb 15.5, Hct 45.3, MCV 88.0, MCH 30.1, MCHC 34.2, RDW Std Deviation 41.9, RDW Coeff of Jacey 12.9, Plt Count 419, MPV 8.7, Immature Gran % (Auto) 0.600, Neut % (Auto) 75.0 H, Lymph % (Auto) 15.4 L, [place] % (Auto) 7.8, Eos % (Auto) 0.4, Baso % (Auto) 0.8, Absolute Neuts (auto) 14.0 H, Absolute Lymphs (auto) 2.87, Nucleated RBC % 0, Sodium 136, Potassium 3.9, Chloride 107, Carbon Dioxide 22.0, Anion Gap 7, BUN 10, Creatinine 0.86, Estim Creat Clear Calc 184.76, Est GFR (MDRD) Af Amer 128, Est GFR (MDRD) Non-Af 106, BUN/Creatinine Ratio 11.7, Glucose 148 H, Hemoglobin A1c 6.4 H, Calcium 9.2 09/08/23 15:50: PT 13.4, INR 1.0, APTT 25.5 Imaging Radiology Impression Tibia/Fibula X-Ray 09/08/23 13:31 IMPRESSION: ORIF healing patellar fracture. No acute fracture or dislocation identified in the right leg. Electronically Signed: Lyn Mackey MD at 14:12 EST , Ankle X-Ray 09/08/23 13:40 IMPRESSION: Possible nondisplaced fracture of the right distal tibia. Electronically Signed: Lyn Mackey MD at 14:10 EST , Lower Extremity CT 09/08/23 14:22 IMPRESSION: Acute nondisplaced intra-articular fracture of the right distal tibia laterally. Electronically Signed: Lyn Mackey MD at 15:01 EST , Assessment & Plan Assessment/Plan (1) Fracture of distal end of right tibia: QUALIFIERS: Encounter type: initial encounter Fracture type: closed Fracture morphology: other fracture Qualified Code(s): S82.391A - Other fracture of lower end of right tibia, initial encounter for closed fracture PLAN: Patient sustained a nondisplaced [place] avulsion fracture of the distal tibia. Plan for nonoperative management. This was reviewed with the patient. I recommended continued immobilization in the 3 sided short leg splint. Plan for nonweightbearing right lower extremity. We will plan to transition to a cast in the outpatient setting. Patient expressed concerns about going home postoperatively. He may benefit from SNF as he required this after his patella fracture even with the weightbearing as tolerated status after the patella fixat ion. I will sign off at this time. Please note is to call if any questions or concerns arise. Plan for follow-up at [facility] in approximately 1 week with x-rays upon arrival in splint. Splint should be maintained, kept clean and dry until follow-up. Ice and elevation of the right ankle.
[2023-09-08 22:15] VITALS: BP 150/97; PULSE 110; RESP 18; TEMP 37.3; O2SAT 96
[2023-09-08] MEDS: Acetaminophen 500 MG Tablet 1000 MG PO (22:18)
[2023-09-09] VITALS (7 sets, daily range): BP systolic 143–147; BP diastolic 78–104; PULSE 100–116; RESP 16–18; TEMP 36.1–36.8; O2SAT 93–99; BMI 40.3
[2023-09-09] MEDS: Lactated Ringers 1,000 ML 70 ML IV
[2023-09-09] MEDS: Acetaminophen 500 MG Tablet 1000 MG PO ×3 (05:30→21:34)
[2023-09-09 07:25] LABS: Absolute Lymphocyte Count 4.67 X10^3/uL (0.83-4.51); Absolute Neutrophil Count 7.5 X10^3/uL (2.0-7.7); Basophil# 0.13 X10^3/uL; Basophil% 0.9 % (0-1); Eosinophil# 0.27 X10^3/uL; Eosinophils% 1.9 % (0-5); Hematocrit 41.5 % (40-54); Hemoglobin 13.9 g/dL (13.0-16.5); Lymphocyte # 4.67 X10^3/ul (0.83-4.51); Lymphocyte % 32.7 % (19-41); Mean Corp Hgb Conc 33.5 g/dL (32-36); Mean Corpuscular Hgb 29.1 pg (27.0-32.0); Mean Platelet Vol. 8.8 fl (6.2-12.0); Monocyte# 1.57 X10^3/uL; NRBC Flagged by Analyzer 0 % (0-5); Neutrophil # 7.53 X10^3/uL (2.7-7.7); Neutrophil % 52.8 % (47-70); POSITIVE DIFFERENTIAL YES; Platelet Count 371 K/mm3 (150-450); RBC Distribution Width CV 13.1 % (11.6-14.6); RBC Distribution Width SD 41.3 fl (35.1-43.9); Red Blood Count 4.77 M/mm3 (4.6-6.2); White Blood Count 14.3 K/mm3 (4.4-11.0)
--- NOTE | 2023-09-09 07:36 | PN.HOSP_ITS ---
Reason for Visit Reason for Visit: Diagnoses Weakness (09/08/23) Hyperglycemia, unspecified (09/08/23) Unspecified fracture of lower end of right tibia, initial encounter for closed fracture (09/08/23) Other fracture of lower end of right tibia, initial encounter for closed fracture (09/08/23) Unspecified fall, initial encounter (09/08/23) Subjective Subjective Patient is a 38-year-old gentleman who presented with right ankle pain following a fall imaging studies demonstrated right distal tibia fracture admitted to regular nursing floor with consultation placed orthopedic surgery Objective Data Objective Data Vital Signs: Vital Signs Temp Pulse Resp BP Pulse Ox O2 Del Method 97.8 F 110 H 16 143/78 H 96 Room Air 09/09/23 04:00 09/09/23 06:33 09/09/23 04:00 09/09/23 04:00 09/09/23 04:00 09/09/23 06:33 Oxygen Delivery Method Room Air Weight: 150.2 kg Body Mass Index (BMI) 40.3 Intake & Output: Intake and Output for Last 24 Hours 09/07/23 09/08/23 09/09/23 23:59 23:59 23:59 Output Total 500 / 500 Balance -500 / -500 Lab / Micro Data 09/08/23 15:15 09/08/23 15:15 Labs: Laboratory Results - last 24 hr 09/08/23 15:15: WBC 18.6 H, RBC 5.15, Hgb 15.5, Hct 45.3, MCV 88.0, MCH 30.1, MCHC 34.2, RDW Std Deviation 41.9, RDW Coeff of Jacey 12.9, Plt Count 419, MPV 8.7, Immature Gran % (Auto) 0.600, Neut % (Auto) 75.0 H, Lymph % (Auto) 15.4 L, [place] % (Auto) 7.8, Eos % (Auto) 0.4, Baso % (Auto) 0.8, Absolute Neuts (auto) 14.0 H, Absolute Lymphs (auto) 2.87, Nucleated RBC % 0, Sodium 136, Potassium 3.9, Chloride 107, Carbon Dioxide 22.0, Anion Gap 7, BUN 10, Creatinine 0.86, Estim Creat Clear Calc 184.76, Est GFR (MDRD) Af Amer 128, Est GFR (MDRD) Non-Af 106, BUN/Creatinine Ratio 11.7, Glucose 148 H, Hemoglobin A1c 6.4 H, Calcium 9.2 09/08/23 15:50: PT 13.4, INR 1.0, APTT 25.5 Radiography Diagnostic Testing: Radiology Impression Tibia/Fibula X-Ray 09/08/23 13:31 IMPRESSION: ORIF healing patellar fracture. No acute fracture or dislocation identified in the right leg. Electronically Signed: Lyn Mackey MD at 14:12 EST , Ankle X-Ray 09/08/23 13:40 IMPRESSION: Possible nondisplaced fracture of the right distal tibia. Electronically Signed: Lyn Mackey MD at 14:10 EST Reading Location ID and State: [facility] / [place] Tel , Service support , Lower Extremity CT 09/08/23 14:22 IMPRESSION: Acute nondisplaced intra-articular fracture of the right distal tibia laterally. Electronically Signed: Lyn Mackey MD at 15:01 EST , Physical Exam Narrative GENERAL: cooperative HEENT: Atraumatic; normocephalic EYES; Anicteric, Normal Conjunctiva NECK; supple, normal thyroid, RESPIRATORY: Diminished to auscultation CARDIOVASCULAR: Regular S1 S2, GI: soft, normoactive bowel sounds, : No Renal angle tenderness; EXTREMITIES: No edema, no clubbing, MUSCULOSKELETAL: Right ankle immobilized NEURO: Awake; no lateralizing signs. SKIN: No Rash PSYCH; Flat affect Assessment & Plan Assessment/Plan (1) Fall: (2) Fracture of distal end of right tibia: QUALIFIERS: Encounter type: initial encounter Fracture type: cl osed Fracture morphology: other fracture Qualified Code(s): S82.391A - Other fracture of lower end of right tibia, initial encounter for closed fracture (3) Generalized weakness: (4) Hyperglycemia: PLAN: Plan Patient is a 38-year-old gentleman who presented with right ankle pain following a fall imaging studies demonstrated right distal tibia fracture admitted to regular nursing floor with consultation placed orthopedic surgery 1. Right distal tibia fracture ? Admitted to regular nursing floor managed with pain management immobilization with consultation placed to orthopedic surgery. Patient was seen by Dr. Pedro with orthopedic surgery currently recommends nonoperative management. 2. Hyperglycemia -Check hemoglobin A1c hemoglobin A1c was 6.4 we will continue with monitoring -May be elevated due to acute stress 3. Generalized weakness -Patient is currently being worked up by neurology for possible MS versus other neurological process. Had appointment on 09/08/2023 at neurology at [facility] which had to be rescheduled. Requested for PT OT eval and social service technician to assist with discharge 4. Class III 3 obesity with BMI of 40.3 ? Complicating care weight loss advised 5. Physical deconditioning - Requested for PT OT eval and social service technician to assist with discharge planning 6. DVT prophylaxis ? SC Lovenox Time spent in the patient's overall evaluation,decision-making process, review of diagnostic data, adjustment of management, discussion with other providers, nursing nursing and ancillary staff involved in patient's care documentation, 35 Minutes Charges/Coding Visit Charges Inpatient E&M: 07204 Subs Hosp L2
[2023-09-09 07:45] LABS: Anion Gap 8 (5-15); BUN 10 mg/dL (7-18); BUN/Creat Ratio 12.4 RATIO (10-20); Calcium,Total 8.8 mg/dL (8.5-10.1); Chloride 104 mmol/L (98-107); EST Glomerular Filtration Rate 114 mL/min (>60); Est Glom Filt Rate - Afr Amer 138 mL/min (>60); Estimated Creatinine Clearance 198.62 ml/min; Glucose 130 mg/dL (74-106); Potassium 3.7 mmol/L (3.5-5.1); Sodium Level 135 mmol/L (136-145)
[2023-09-09 08:47] LABS: Differential Indicated SCAN CRITERIA MET
[2023-09-09] MEDS: Docusate Sodium 100 MG Capsule PO (10:16)
[2023-09-09] MEDS: Lisinopril 10 MG Tablet PO (10:16)
--- NOTE | 2023-09-09 10:33 | CASEMGMT ---
Discharge Planning A list of SNF providers including quality and resource use data and consistent with the patient's preferred geographic region, medical needs, and insurance network was created in [employer] Guide.? This list was provided to the SW. Analilia Acuna Discharge Planning Asst.
--- NOTE | 2023-09-09 13:50 | CASEMGMT ---
RN?CM?TRANS ROUTER?CM?to room to meet with patient for initial transition planning/care coordination?assessment.?RN?CM?introduced self and role at [facility].? Pt voices understanding and consents to?assessment?at this time.? Pt resting in bed in no distress at this time.? Pt is A/O at this time and answers all questions appropriately.?? Care providers, pharmacy, and demographics verified/updated at this time. PCP: Dr Dolan Specialists: Dr Pedro-ortho, Dr Baker-neuro. Pt was getting ready to go see neuro @ [facility] yesterday for MS work-up, when he fell. Preferred Pharmacy: [facility] Insurance: [facility] Prescription Benefit:?yes Living Will/HPOA:?Pt does not currently have LW/HCPOA LNOK: Parents, Nikos and Jimena. Aunt Estee Living Arrangements: Lives in the walk-out basement of his parents home. Pt able to sponge self. His mother assists w/setting up for the sponge bath and assists w/dressing as needed. Pt manages his own medications. Family assist w/IADL's and takes him to appts. Transportation:?Pt states states he has not driven for about a year. His family provides transportation. DME: ?States has the following DME:?RTS, walker, toilet side-rails. He has a tub bench, but d/t unable to step over the edge of tub, he has been sponge-bathing. HHC/SNF: Hs been to [facility] in the past (2022), but states he de guzman not wish to go back there again. He has not had HHC in the past. Pt states he will need to go to a SNF @ discharge. He was provied w/SNF list that was prepared by Analilia discharge community health planning director. Pt aware to review and to pick top 3 choices. He states he wishes to take a nap now and will review it this evening. Deneen GUZMAN, made aware. Per Char JAMES, chris states pt informed her he was trying to get on disability and she also states she was talking w/pt about feeling depressed d/t MS work-up. Deneen GUZMAN made aware. PLAN:??SNF Dominic BSN?RN?CM
[2023-09-09] MEDS: Senna/Docusate Sodium 1 Tablet 2 TABLET PO (14:07)
[2023-09-09] MEDS: oxyCODONE 5 MG Tablet PO (14:10)
[2023-09-09] MEDS: Enoxaparin 40 MG/0.4 ML Syringe SC (21:34)
[2023-09-10 04:07] VITALS: BP 118/68; PULSE 102; RESP 18; TEMP 36.7; O2SAT 96
[2023-09-10] MEDS: Acetaminophen 500 MG Tablet 1000 MG PO ×3 (05:55→21:02)
[2023-09-10 06:32] LABS: Absolute Lymphocyte Count 4.18 X10^3/uL (0.83-4.51); Absolute Neutrophil Count 7.2 X10^3/uL (2.0-7.7); Basophil# 0.13 X10^3/uL; Eosinophil# 0.52 X10^3/uL; Eosinophils% 3.9 % (0-5); Hematocrit 42.9 % (40-54); Hemoglobin 14.1 g/dL (13.0-16.5); Lymphocyte # 4.18 X10^3/ul (0.83-4.51); Lymphocyte % 31.3 % (19-41); Mean Corp Hgb Conc 32.9 g/dL (32-36); Mean Corpuscular Hgb 29.3 pg (27.0-32.0); Mean Platelet Vol. 8.6 fl (6.2-12.0); Monocyte% 9.7 % (0-10); NRBC Flagged by Analyzer 0 % (0-5); Neutrophil # 7.16 X10^3/uL (2.7-7.7); Neutrophil % 53.5 % (47-70); Platelet Count 354 K/mm3 (150-450); RBC Distribution Width CV 13.2 % (11.6-14.6); RBC Distribution Width SD 42.8 fl (35.1-43.9); Red Blood Count 4.82 M/mm3 (4.6-6.2); White Blood Count 13.4 K/mm3 (4.4-11.0)
[2023-09-10 07:16] LABS: Anion Gap 7 (5-15); BUN 12 mg/dL (7-18); BUN/Creat Ratio 14.3 RATIO (10-20); Calcium,Total 8.7 mg/dL (8.5-10.1); Chloride 104 mmol/L (98-107); Creatinine, Serum 0.84 mg/dL (0.70-1.30); EST Glomerular Filtration Rate 108 mL/min (>60); Est Glom Filt Rate - Afr Amer 131 mL/min (>60); Estimated Creatinine Clearance 189.16 ml/min; Glucose 132 mg/dL (74-106); Phosphorus 3.9 mg/dL (2.5-4.9); Potassium 3.8 mmol/L (3.5-5.1); Sodium Level 137 mmol/L (136-145)
[2023-09-10 07:56] VITALS: O2SAT 94
--- NOTE | 2023-09-10 09:00 | CASEMGMT ---
Addendum entered by Deneen Garcia 09/10/23 13:11: [facility] is able to accept pt and has a private room for patient. Precert to be started at this time. Pt updated and agreeable. Plan: [facility], pending precert JOSÉ Solis Addendum entered by Deneen Garcia 09/10/23 09:52: [facility] is unable to accept. SW met with pt and informed of this. Pt requesting referral to [facility] and would want a private room. DC anatomic pathology assistant updated and to send referral. JOSÉ Connell Original Note: Social Work SW met with pt and introduced self and role of SW. SW spoke with pt regarding SNF placement and preferred providers. Pt choosing [facility]. DC anatomic pathology assistant updated and referral made. JOSÉ Solis
--- NOTE | 2023-09-10 09:04 | CASEMGMT ---
Addendum entered by Analilia Acuna 09/10/23 09:31: W declined referral. SW accepted. Analilia Acuna, Discharge Planning Asst. Original Note: Discharge Planning Referral sent via [facility]Port to [facility]. Analilia Acuna, Discharge Planning Asst.
--- NOTE | 2023-09-10 09:06 | PCM.PN.HOSP ---
Reason for Visit Reason for Visit: Diagnoses Weakness (09/08/23) Hyperglycemia, unspecified (09/08/23) Unspecified fracture of lower end of right tibia, initial encounter for closed fracture (09/08/23) Other fracture of lower end of right tibia, initial encounter for closed fracture (09/08/23) Unspecified fall, initial encounter (09/08/23) Subjective Subjective Patient seen pain remains controlled. Awaiting transfer to halfway facility Objective Data Objective Data Vital Signs: Vital Signs Temp Pulse Resp BP Pulse Ox O2 Del Method 98.1 F 102 H 18 118/68 94 Room Air 09/10/23 04:07 09/10/23 04:07 09/10/23 04:07 09/10/23 04:07 09/10/23 07:56 09/10/23 07:56 Oxygen Delivery Method Room Air Weight: 150.2 kg Body Mass Index (BMI) 40.3 Intake & Output: Intake and Output for Last 24 Hours 09/08/23 09/09/23 09/10/23 23:59 23:59 23:59 Intake Total 2450 / 2450 500 / 500 Output Total 1100 / 1400 600 / 600 Balance 1350 / 1050 -100 / -100 Lab / Micro Data 09/10/23 06:17 09/10/23 06:17 Labs: Laboratory Results - last 24 hr 09/10/23 06:17: WBC 13.4 H, RBC 4.82, Hgb 14.1, Hct 42.9, MCV 89.0, MCH 29.3, MCHC 32.9, RDW Std Deviation 42.8, RDW Coeff of Jacey 13.2, Plt Count 354, MPV 8.6, Immature Gran % (Auto) 0.600, Neut % (Auto) 53.5, Lymph % (Auto) 31.3, Hockley % (Auto) 9.7, Eos % (Auto) 3.9, Baso % (Auto) 1.0, Absolute Neuts (auto) 7.2, Absolute Lymphs (auto) 4.18, Nucleated RBC % 0, Sodium 137, Potassium 3.8, Chloride 104, Carbon Dioxide 26.0, Anion Gap 7, BUN 12, Creatinine 0.84, Estim Creat Clear Calc 189.16, Est GFR (MDRD) Af Amer 131, Est GFR (MDRD) Non-Af 108, BUN/Creatinine Ratio 14.3, Glucose 132 H, Calcium 8.7, Phosphorus 3.9, Magnesium 2.0 Physical Exam Narrative GENERAL: cooperative HEENT: Atraumatic; normocephalic EYES; Anicteric, Normal Conjunctiva NECK; supple, normal thyroid, RESPIRATORY: Diminished to auscultation CARDIOVASCULAR: Regular S1 S2, GI: soft, normoactive bowel sounds, : No Renal angle tenderness; EXTREMITIES: No edema, no clubbing, MUSCULOSKELETAL: Right ankle immobilized NEURO: Awake; no lateralizing signs. SKIN: No Rash PSYCH; Flat affect Assessment & Plan Assessment/Plan (1) Fall: (2) Fracture of distal end of right tibia: QUALIFIERS: Encounter type: initial encounter Fracture morphology: other fracture Fracture type: closed Qualified Code(s): S82.391A - Other fracture of lower end of right tibia, initial encounter for closed fracture (3) Generalized weakness: (4) Hyperglycemia: PLAN: Plan Patient is a 38-year-old gentleman who presented with right ankle pain following a fall imaging studies demonstrated right distal tibia fracture admitted to regular nursing floor with consultation placed orthopedic surgery 1. Right distal tibia fracture ? Admitted to regular nursing floor managed with pain management immobilization with consultation placed to orthopedic surgery. Patient was seen by Dr. Pedro with orthopedic surgery currently recommends nonoperative management. ? 09/10/2023 pain remains controlled. Awaiting transfer to halfway facility 2. Hyperglycemia -Check hemoglobin A1c hemoglobin A1c was 6.4 we will continue with monitoring -May be elevated due to acute stress 3. Generalized weakness -Patient is currently being worked up by neurology for possible MS versus other neurological process. Had appointment on 09/08/2023 at neurology at [facility] which had to be rescheduled. Requested for PT OT eval and social media designer to assist with discharge 4. Class III 3 obesity with BMI of 40.3 ? Complicating care weight loss advised 5. Physical deconditioning - Requested for PT OT eval and social media designer to assist with discharge planning 6. DVT prophylaxis ? SC Lovenox Time spent in the patient's overall evaluation,decision-making process, review of diagnostic data, adjustment of management, discussion with other providers, nursing nursing and ancillary staff involved in patient's care documentation, 35 Minutes Charges/Coding Visit Charges Inpatient E&M: 94552 Subs Hosp L2
[2023-09-10] MEDS: Lisinopril 10 MG Tablet PO (09:20)
[2023-09-10] MEDS: Docusate Sodium 100 MG Capsule PO ×2 (09:20→21:02)
[2023-09-10] MEDS: Enoxaparin 40 MG/0.4 ML Syringe SC ×2 (09:20→21:02)
[2023-09-10 09:36] VITALS: BP 139/87; PULSE 96; RESP 18; TEMP 36.5; O2SAT 98
--- NOTE | 2023-09-10 10:06 | CASEMGMT ---
Addendum entered by Analilia Acuna 09/10/23 12:48: Patient has been accepted by [facility] and precert will be submitted. Analilia Acuna, Discharge Planning Asst. Original Note: Discharge Planning Referral sent to [facility] via [facility]Port. Analilia Acuna, Discharge Planning Asst.
--- NOTE | 2023-09-10 14:53 | CHAPLAIN ---
Type of Pastoral Visit _x__ Initial Visit ___ Follow-up Visit ___ On-call Visit ___ General Patient Visit ___ Spiritual Assessment ___ Family Conference ___ Bereavement ___ Rapid Response ___ Code Blue ___ Other (describe below) Pastoral Care Referral From _x__ Patient ___ Family ___ Nurse ___ Physician ___ Bundle Breaker ___ Concrete Swimming Pool Installer ___ Other (describe below) Sacrament/Intervention _x__ Active listening ___ Anointing ___ Buddhism ___ Bereavement ___ Communion _x__ Berkley exploration ___ _x__ Life review _x__ Prayer ___ Reconciliation ___ Sacrament of Sick _x__ Supportive presence ___ Wedding ___ Other (describe below) Pastoral Comments patient was seen previously in this hospital and had a good conversation then about berkley; patient does remember this spray worker and explains current situation; pt is quite negative about his health assistance and no one really listening to me or taking this seriously; pt also admits that seems like I've done something wrong because God doesn't hear me either; pt is negative in attitude and outlook and has answers that are mostly excuses about his life situation; pt complains about healthcare people, outside welfare case worker, nursing homes, parents especially father, and anyone mentioned in conversation; this spray worker tried to refocus the patient on the current situation and how he responds to life; pt brings up his spiritual doubts and questions; listened and responded with thoughts for the patient to consider; pt willing to have a prayer spoken for him; offer of future support given to patient during his stay in the hospital
[2023-09-10] MEDS: oxyCODONE 5 MG Tablet PO (14:54)
[2023-09-10 15:07] VITALS: BP 154/77; PULSE 110; RESP 18; TEMP 36.8; O2SAT 98
--- NOTE | 2023-09-10 20:00 | NURSING ---
pt removed his iv. refused re-insertion. dr hickman notified.
[2023-09-10 20:53] VITALS: BP 153/124; PULSE 125; RESP 20; TEMP 36.8; O2SAT 98
--- NOTE | 2023-09-11 02:42 | NURSING ---
pt removed his iv. refused re-insertion. dr hickman notified.
[2023-09-11] MEDS: Acetaminophen 500 MG Tablet 1000 MG PO ×3 (05:27→21:57)
[2023-09-11] MEDS: Lisinopril 10 MG Tablet PO (05:27)
[2023-09-11 05:28] VITALS: BP 167/93; PULSE 113; RESP 18; TEMP 36.6; O2SAT 96
[2023-09-11 06:48] LABS: Absolute Lymphocyte Count 4.43 X10^3/uL (0.83-4.51); Absolute Neutrophil Count 7.4 X10^3/uL (2.0-7.7); Basophil# 0.15 X10^3/uL; Basophil% 1.1 % (0-1); Eosinophil# 0.59 X10^3/uL; Eosinophils% 4.2 % (0-5); Hematocrit 40.3 % (40-54); Hemoglobin 13.5 g/dL (13.0-16.5); Lymphocyte # 4.43 X10^3/ul (0.83-4.51); Lymphocyte % 31.3 % (19-41); Mean Corp Hgb Conc 33.5 g/dL (32-36); Mean Corpuscular Hgb 29.7 pg (27.0-32.0); Mean Corpuscular Volume 88.8 fL (80-94); Mean Platelet Vol. 8.7 fl (6.2-12.0); Monocyte# 1.46 X10^3/uL; Monocyte% 10.3 % (0-10); NRBC Flagged by Analyzer 0 % (0-5); Neutrophil # 7.43 X10^3/uL (2.7-7.7); Neutrophil % 52.5 % (47-70); Platelet Count 353 K/mm3 (150-450); RBC Distribution Width CV 13.2 % (11.6-14.6); RBC Distribution Width SD 43.2 fl (35.1-43.9); Red Blood Count 4.54 M/mm3 (4.6-6.2); White Blood Count 14.2 K/mm3 (4.4-11.0)
--- NOTE | 2023-09-11 07:23 | PCM.PN.HOSP ---
Reason for Visit Reason for Visit: Diagnoses Weakness (09/08/23) Hyperglycemia, unspecified (09/08/23) Unspecified fracture of lower end of right tibia, initial encounter for closed fracture (09/08/23) Other fracture of lower end of right tibia, initial encounter for closed fracture (09/08/23) Unspecified fall, initial encounter (09/08/23) Subjective Subjective Transfer to detention facility still pending. Diagnostic data reviewed Signifor calcium of 134 Objective Data Objective Data Vital Signs: Vital Signs Temp Pulse Resp BP Pulse Ox O2 Del Method 98 F 113 H 18 167/93 H 96 Room Air 09/11/23 05:28 09/11/23 05:28 09/11/23 05:28 09/11/23 05:28 09/11/23 05:28 09/11/23 05:31 Oxygen Delivery Method Room Air Weight: 150.2 kg Body Mass Index (BMI) 40.3 Intake & Output: Intake and Output for Last 24 Hours 09/09/23 09/10/23 09/11/23 23:59 23:59 23:59 Intake Total 2450 / 2450 1700 / 1700 600 / 600 Output Total 1100 / 1400 1150 / 1750 1000 / 1000 Balance 1350 / 1050 550 / -50 -400 / -400 Lab / Micro Data 09/11/23 06:20 09/11/23 06:20 Labs: Laboratory Results - last 24 hr 09/11/23 06:20: WBC 14.2 H, RBC 4.54 L, Hgb 13.5, Hct 40.3, MCV 88.8, MCH 29.7, MCHC 33.5, RDW Std Deviation 43.2, RDW Coeff of Jacey 13.2, Plt Count 353, MPV 8.7, Immature Gran % (Auto) 0.600, Neut % (Auto) 52.5, Lymph % (Auto) 31.3, Wil[place]ger % (Auto) 10.3 H, Eos % (Auto) 4.2, Baso % (Auto) 1.1 H, Absolute Neuts (auto) 7.4, Absolute Lymphs (auto) 4.43, Nucleated RBC % 0 Physical Exam Narrative GENERAL: cooperative HEENT: Atraumatic; normocephalic EYES; Anicteric, Normal Conjunctiva NECK; supple, normal thyroid, RESPIRATORY: Diminished to auscultation CARDIOVASCULAR: Regular S1 S2, GI: soft, normoactive bowel sounds, : No Renal angle tenderness; EXTREMITIES: No edema, no clubbing, MUSCULOSKELETAL: Right ankle immobilized NEURO: Awake; no lateralizing signs. SKIN: No Rash PSYCH; Flat affect Assessment & Plan Assessment/Plan (1) Fall: (2) Fracture of distal end of right tibia: QUALIFIERS: Encounter type: initial encounter Fracture morphology: other fracture Fracture type: closed Qualified Code(s): S82.391A - Other fracture of lower end of right tibia, initial encounter for closed fracture (3) Generalized weakness: (4) Hyperglycemia: PLAN: Plan Patient is a 38-year-old gentleman who presented with right ankle pain following a fall imaging studies demonstrated right distal tibia fracture admitted to regular nursing floor with consultation placed orthopedic surgery 1. Right distal tibia fracture ? Admitted to regular nursing floor managed with pain management immobilization with consultation placed to orthopedic surgery. Patient was seen by Dr. Pedro with orthopedic surgery currently recommends nonoperative management. ? 09/10/2023 pain remains controlled. Awaiting transfer to detention facility 2. Hyperglycemia -Check hemoglobin A1c hemoglobin A1c was 6.4 we will continue with monitoring -May be elevated due to acute stress 3. Generalized weakness -Patient is currently being worked up by neurology for possible MS versus other neurological process. Had appointment on 09/08/[address] [facility] which had to be rescheduled. Requested for PT OT eval and social services assistant to assist with discharge 4. Class III 3 obesity with BMI of 40.3 ? Complicating care weight loss advised 5. Physical deconditioning - Requested for PT OT eval and social services assistant to assist with discharge planning 6. DVT prophylaxis ? SC Lovenox 7. Mild hyponatremia - will continue with monitoring Time spent in the patient's overall evaluation,decision-making process, review of diagnostic data, adjustment of management, discussion with other providers, nursing nursing and ancillary staff involved in patient's care documentation, 35 Minutes Charges/Coding Visit Charges Inpatient E&M: 89078 Subs Hosp L2
[2023-09-11 08:00] LABS: Anion Gap 7 (5-15); BUN 14 mg/dL (7-18); BUN/Creat Ratio 17.7 RATIO (10-20); Calcium,Total 8.7 mg/dL (8.5-10.1); Chloride 105 mmol/L (98-107); Creatinine, Serum 0.79 mg/dL (0.70-1.30); EST Glomerular Filtration Rate 117 mL/min (>60); Est Glom Filt Rate - Afr Amer 141 mL/min (>60); Estimated Creatinine Clearance 201.13 ml/min; Glucose 135 mg/dL (74-106); Potassium 3.9 mmol/L (3.5-5.1); Sodium Level 134 mmol/L (136-145)
[2023-09-11 08:51] LABS: Pathologist Review Reviewed
[2023-09-11 09:28] VITALS: BP 136/89; PULSE 100; RESP 18; TEMP 36.7; O2SAT 97
[2023-09-11] MEDS: Enoxaparin 40 MG/0.4 ML Syringe SC ×2 (09:32→21:57)
[2023-09-11 14:50] VITALS: BP 133/85; PULSE 108; RESP 18; TEMP 36.6; O2SAT 96
--- NOTE | 2023-09-11 17:13 | CASEMGMT ---
Social Work THOMAS spoke with [facility] and precert is still pending at this time. [facility] aware to call the nursing unit over the weekend if precert is obtained. Green sheet placed on pt chart to facility possible weekend discharge. SW completed SDOH screening with pt. Current needs will be met with discharge to [facility]. Pt affect flat during conversation. Pt denies any mental health diagnosis, medicaition or followup with counseling but pt does state that he is depressed. Pt denies Suicidal Ideations. Pt unhappy with home situation, living with his parents and pt verbalizing feelings regarding difficult relationship with his father. Pt does not work and is not on disability. Pt states he has lived on his own on and off but does not have the financial means to do so. SW inquired about [facility]. Pt states he has applied once but is uncertain why he was denied. THOMAS provided pt with packet of information and application for [facility]. SW inquired about Case management and pt denies having this services but is agreeable to referral to [facility] and [facility]. THOMAS encouraged pt to follow up with THOMAS at [facility] to discuss dc plans from that facility as pt does not feel he can return to his parents home. Referral to [facility] for HCBS waiver. THOMAS received return call from Harjit at [facility] who states pt was approved for this program in August. Referral to [facility]. VM left. THOMAS updated [facility] on referrals that had been sent. Plan: [facility], pending precert JOSÉ Solis
[2023-09-11 20:12] VITALS: BP 142/95; PULSE 115; RESP 16; TEMP 36.6; O2SAT 95
[2023-09-12 03:22] VITALS: BP 143/87; PULSE 95; RESP 16; TEMP 36.6; O2SAT 95
[2023-09-12] MEDS: Acetaminophen 500 MG Tablet 1000 MG PO ×3 (05:30→20:43)
[2023-09-12 06:34] LABS: Absolute Lymphocyte Count 4.34 X10^3/uL (0.83-4.51); Absolute Neutrophil Count 5.6 X10^3/uL (2.0-7.7); Basophil# 0.12 X10^3/uL; Eosinophil# 0.55 X10^3/uL; Eosinophils% 4.6 % (0-5); Hematocrit 40.8 % (40-54); Hemoglobin 13.4 g/dL (13.0-16.5); Lymphocyte # 4.34 X10^3/ul (0.83-4.51); Mean Corp Hgb Conc 32.8 g/dL (32-36); Mean Corpuscular Hgb 29.1 pg (27.0-32.0); Mean Corpuscular Volume 88.7 fL (80-94); Mean Platelet Vol. 8.9 fl (6.2-12.0); Monocyte% 10.8 % (0-10); NRBC Flagged by Analyzer 0 % (0-5); Neutrophil # 5.64 X10^3/uL (2.7-7.7); Neutrophil % 46.9 % (47-70); Platelet Count 347 K/mm3 (150-450); RBC Distribution Width CV 13.2 % (11.6-14.6); RBC Distribution Width SD 42.8 fl (35.1-43.9)
[2023-09-12 07:00] LABS: Anion Gap 6 (5-15); BUN 11 mg/dL (7-18); BUN/Creat Ratio 14.2 RATIO (10-20); Calcium,Total 8.7 mg/dL (8.5-10.1); Chloride 105 mmol/L (98-107); Creatinine, Serum 0.77 mg/dL (0.70-1.30); EST Glomerular Filtration Rate 119 mL/min (>60); Est Glom Filt Rate - Afr Amer 144 mL/min (>60); Estimated Creatinine Clearance 206.35 ml/min; Glucose 134 mg/dL (74-106); Potassium 3.6 mmol/L (3.5-5.1); Sodium Level 136 mmol/L (136-145)
--- NOTE | 2023-09-12 07:09 | PN.HOSP_ITS ---
Reason for Visit Reason for Visit: Diagnoses Weakness (09/08/23) Hyperglycemia, unspecified (09/08/23) Unspecified fracture of lower end of right tibia, initial encounter for closed fracture (09/08/23) Other fracture of lower end of right tibia, initial encounter for closed fracture (09/08/23) Unspecified fall, initial encounter (09/08/23) Subjective Subjective Patient seen complaining of pain in both shoulders as well as right ankle. Objective Data Objective Data Vital Signs: Vital Signs Temp Pulse Resp BP Pulse Ox O2 Del Method 97.9 F 95 16 143/87 H 95 Room Air 09/12/23 03:22 09/12/23 03:22 09/12/23 03:22 09/12/23 03:22 09/12/23 03:22 09/12/23 03:22 Oxygen Delivery Method Room Air Weight: 150.2 kg Body Mass Index (BMI) 40.3 Intake & Output: Intake and Output for Last 24 Hours 09/10/23 09/11/23 09/12/23 23:59 23:59 23:59 Intake Total 1700 / 1700 600 / 600 1000 / 1000 Output Total 1150 / 1750 1450 / 1450 1000 / 1000 Balance 550 / -50 -850 / -850 0 / 0 Lab / Micro Data 09/12/23 06:00 09/12/23 06:00 Labs: Laboratory Results - last 24 hr 09/09/23 06:46: Diff Path Review Reviewed 09/11/23 06:20: Sodium 134 L, Potassium 3.9, Chloride 105, Carbon Dioxide 22.0, Anion Gap 7, BUN 14, Creatinine 0.79, Estim Creat Clear Calc 201.13, Est GFR (MDRD) Af Amer 141, Est GFR (MDRD) Non-Af 117, BUN/Creatinine Ratio 17.7, Glucose 135 H, Calcium 8.7 09/12/23 06:00: WBC 12.0 H, RBC 4.60, Hgb 13.4, Hct 40.8, MCV 88.7, MCH 29.1, MCHC 32.8, RDW Std Deviation 42.8, RDW Coeff of Jacey 13.2, Plt Count 347, MPV 8.9, Immature Gran % (Auto) 0.700, Neut % (Auto) 46.9 L, Lymph % (Auto) 36.0, [place] % (Auto) 10.8 H, Eos % (Auto) 4.6, Baso % (Auto) 1.0, Absolute Neuts (auto) 5.6, Absolute Lymphs (auto) 4.34, Nucleated RBC % 0, Sodium 136, Potassium 3.6, Chloride 105, Carbon Dioxide 25.0, Anion Gap 6, BUN 11, Creatinine 0.77, Estim Creat Clear Calc 206.35, Est GFR (MDRD) Af Amer 144, Est GFR (MDRD) Non-Af 119, BUN/Creatinine Ratio 14.2, Glucose 134 H, Calcium 8.7 Physical Exam Narrative GENERAL: cooperative HEENT: Atraumatic; normocephalic EYES; Anicteric, Normal Conjunctiva NECK; supple, normal thyroid, RESPIRATORY: Diminished to auscultation CARDIOVASCULAR: Regular S1 S2, GI: soft, normoactive bowel sounds, : No Renal angle tenderness; EXTREMITIES: No edema, no clubbing, MUSCULOSKELETAL: Right ankle immobilized NEURO: Awake; no lateralizing signs. SKIN: No Rash PSYCH; Flat affect Assessment & Plan Assessment/Plan (1) Fall: (2) Fracture of distal end of right tibia: QUALIFIERS: Encounter type: initial encounter Fracture morphology: other fracture Fracture type: closed Qualified Code(s): S82.391A - Other fracture of lower end of right tibia, initial encounter for closed fracture (3) Generalized weakness: (4) Hyperglycemia: PLAN: Plan Patient is a 38-year-old gentleman who presented with right ankle pain following a fall imaging studies demonstrated right distal tibia fracture admitted to regular nursing floor with consultation placed orthopedic surgery 1. Right distal tibia fracture ? Admitted to regular nursing floor managed with pain management immobilization with consultation placed to orthopedic surgery. Patient was seen by Dr. Pedro with orthopedic surgery currently recommends nonoperative management. ? 09/10/2023 pain remains controlled. [facility] ? 09/12/2023 patient complains of pain in the right ankle. [facility]red [facility] still pending 2. Hyperglycemia -Check hemoglobin A1c hemoglobin A1c was 6.4 we will continue with monitoring -May be elevated due to acute stress 3. Generalized weakness -Patient is currently being worked up by neurology for possible MS versus other neurological process. Had appointment on 09/08/2023 at neurology at [facility] which had to be rescheduled. Requested for PT OT eval and social media designer to assist with discharge 4. Class III 3 obesity with BMI of 40.3 ? Complicating care weight loss advised 5. Physical deconditioning - Requested for PT OT eval and social media designer to assist with discharge planning 6. DVT prophylaxis ? SC Lovenox 7. Mild hyponatremia - will continue with monitoring Time spent in the patient's overall evaluation,decision-making process, review of diagnostic data, adjustment of management, discussion with other providers, nursing nursing and ancillary staff involved in patient's care documentation, 37 Minutes Charges/Coding Visit Charges Inpatient E&M: 34681 Subs Hosp L2
[2023-09-12] MEDS: oxyCODONE 5 MG Tablet PO (08:13)
[2023-09-12] MEDS: Lisinopril 10 MG Tablet PO (08:15)
[2023-09-12] MEDS: Enoxaparin 40 MG/0.4 ML Syringe SC ×2 (08:15→20:42)
[2023-09-12 08:30] VITALS: RESP 18
[2023-09-12 09:30] VITALS: BP 136/65; PULSE 65; RESP 18; TEMP 36.8; O2SAT 98
[2023-09-12] MEDS: Senna/Docusate Sodium 1 Tablet 2 TABLET PO (14:16)
[2023-09-12 16:00] VITALS: BP 145/77; PULSE 114; RESP 18; TEMP 36.6; O2SAT 98
[2023-09-12 20:56] VITALS: BP 148/88; PULSE 112; RESP 16; TEMP 36.6; O2SAT 96
[2023-09-13 05:00] VITALS: BP 148/96; PULSE 101; RESP 16; TEMP 37.1; O2SAT 96
[2023-09-13] MEDS: Acetaminophen 500 MG Tablet 1000 MG PO ×3 (05:15→22:03)
--- NOTE | 2023-09-13 09:09 | PN.HOSP_ITS ---
Reason for Visit Reason for Visit: Diagnoses Weakness (09/08/23) Hyperglycemia, unspecified (09/08/23) Unspecified fracture of lower end of right tibia, initial encounter for closed fracture (09/08/23) Other fracture of lower end of right tibia, initial encounter for closed fracture (09/08/23) Unspecified fall, initial encounter (09/08/23) Subjective Subjective No change in patient's clinical condition. Patient blood pressure however remains elevated Objective Data Objective Data Vital Signs: Vital Signs Temp Pulse Resp BP Pulse Ox O2 Del Method 98.8 F 101 H 16 148/96 H 96 Room Air 09/13/23 05:00 09/13/23 05:00 09/13/23 05:00 09/13/23 05:00 09/13/23 05:00 09/13/23 05:00 Oxygen Delivery Method Room Air Weight: 150.2 kg Body Mass Index (BMI) 40.3 Intake & Output: Intake and Output for Last 24 Hours 09/11/23 09/12/23 09/14/23 23:59 23:59 00:59 Intake Total 600 / 600 3000 / 3000 Output Total 1450 / 1450 2430 / 2430 450 / 450 Balance -850 / -850 570 / 570 -450 / -450 Lab / Micro Data 09/12/23 06:00 09/12/23 06:00 Physical Exam Narrative GENERAL: cooperative HEENT: Atraumatic; normocephalic EYES; Anicteric, Normal Conjunctiva NECK; supple, normal thyroid, RESPIRATORY: Diminished to auscultation CARDIOVASCULAR: Regular S1 S2, GI: soft, normoactive bowel sounds, : No Renal angle tenderness; EXTREMITIES: No edema, no clubbing, MUSCULOSKELETAL: Right ankle immobilized NEURO: Awake; no lateralizing signs. SKIN: No Rash PSYCH; Flat affect Assessment & Plan Assessment/Plan (1) Fall: (2) Fracture of distal end of right tibia: QUALIFIERS: Encounter type: initial encounter Fracture type: c losed Fracture morphology: other fracture Qualified Code(s): S82.391A - Other fracture of lower end of right tibia, initial encounter for closed fracture (3) Generalized weakness: (4) Hyperglycemia: PLAN: Plan Patient is a 38-year-old gentleman who presented with right ankle pain following a fall imaging studies demonstrated right distal tibia fracture admitted to regular nursing floor with consultation placed orthopedic surgery 1. Right distal tibia fracture ? Admitted to regular nursing floor managed with pain management immobilization with consultation placed to orthopedic surgery. Patient was seen by Dr. Pedro with orthopedic surgery currently recommends nonoperative management. ? 09/10/2023 pain remains controlled. Awaiting transfer to fdc facility ? 09/12/2023 patient complains of pain in the right ankle. Transferred to fdc facility still pending 2. Hyperglycemia -Check hemoglobin A1c hemoglobin A1c was 6.4 we will continue with monitoring -May be elevated due to acute stress 3. Generalized weakness -Patient is currently being worked up by neurology for possible MS versus other neurological process. Had appointment on 09/08/2023 at neurology at [facility] which had to be rescheduled. Requested for PT OT eval and high school social science teacher to assist with discharge 4. Class III 3 obesity with BMI of 40.3 ? Complicating care weight loss advised 5. Physical deconditioning - Requested for PT OT eval and high school social science teacher to assist with discharge planning 6. DVT prophylaxis ? SC Lovenox 7. Mild hyponatremia - will continue with monitoring 8. Elevated blood pressure ? Patient not a known hypertensive his pain may be contributing started on hydralazine as needed Time spent in the patient's overall evaluation,decision-making process, review of diagnostic data, adjustment of management, discussion with other providers, nursing nursing and ancillary staff involved in patient's care documentation, 40 Minutes Charges/Coding Visit Charges Inpatient E&M: 82333 Subs Hosp L2
[2023-09-13 10:00] VITALS: BP 171/93; PULSE 105; RESP 18; TEMP 36.9; O2SAT 96
[2023-09-13] MEDS: Docusate Sodium 100 MG Capsule PO (10:55)
[2023-09-13] MEDS: Lisinopril 10 MG Tablet PO (10:55)
[2023-09-13] MEDS: Enoxaparin 40 MG/0.4 ML Syringe SC ×2 (10:55→22:03)
[2023-09-13 13:40] VITALS: PULSE 105
[2023-09-13] MEDS: Metoprolol Tartrate 25 MG Tablet PO ×2 (13:40→22:03)
[2023-09-13] MEDS: amLODIPine 10 MG Tablet PO (13:40)
[2023-09-13 17:00] VITALS: BP 142/85; PULSE 100; RESP 18; TEMP 37.2; O2SAT 96
[2023-09-13] MEDS: oxyCODONE 5 MG Tablet PO (17:46)
[2023-09-13 22:00] VITALS: BP 143/81; PULSE 89; RESP 18; TEMP 36.6; O2SAT 94
[2023-09-13 22:03] VITALS: BP 143/81; PULSE 98
[2023-09-14] MEDS: Acetaminophen 500 MG Tablet 1000 MG PO ×2 (05:57→14:27)
[2023-09-14 06:00] VITALS: BP 124/81; PULSE 88; RESP 18; TEMP 36.6; O2SAT 95
[2023-09-14 07:12] LABS: Absolute Lymphocyte Count 4.19 X10^3/uL (0.83-4.51); Absolute Neutrophil Count 6.3 X10^3/uL (2.0-7.7); Basophil# 0.13 X10^3/uL; Eosinophil# 0.56 X10^3/uL; Eosinophils% 4.4 % (0-5); Hematocrit 39.8 % (40-54); Lymphocyte # 4.19 X10^3/ul (0.83-4.51); Lymphocyte % 33.1 % (19-41); Mean Corp Hgb Conc 32.7 g/dL (32-36); Mean Corpuscular Hgb 29.6 pg (27.0-32.0); Mean Corpuscular Volume 90.7 fL (80-94); Mean Platelet Vol. 8.6 fl (6.2-12.0); Monocyte# 1.38 X10^3/uL; Monocyte% 10.9 % (0-10); NRBC Flagged by Analyzer 0 % (0-5); Neutrophil # 6.29 X10^3/uL (2.7-7.7); Neutrophil % 49.7 % (47-70); Platelet Count 341 K/mm3 (150-450); RBC Distribution Width CV 13.5 % (11.6-14.6); RBC Distribution Width SD 44.4 fl (35.1-43.9); Red Blood Count 4.39 M/mm3 (4.6-6.2); White Blood Count 12.7 K/mm3 (4.4-11.0)
[2023-09-14 07:59] VITALS: BP 129/82; PULSE 82; RESP 17; TEMP 37; O2SAT 95
[2023-09-14 08:03] LABS: Anion Gap 6 (5-15); BUN 14 mg/dL (7-18); BUN/Creat Ratio 16.9 RATIO (10-20); Calcium,Total 9.2 mg/dL (8.5-10.1); Chloride 107 mmol/L (98-107); Creatinine, Serum 0.83 mg/dL (0.70-1.30); EST Glomerular Filtration Rate 110 mL/min (>60); Est Glom Filt Rate - Afr Amer 133 mL/min (>60); Estimated Creatinine Clearance 191.44 ml/min; Glucose 113 mg/dL (74-106); Magnesium 2.1 mg/dL (1.6-2.6); Phosphorus 4.7 mg/dL (2.5-4.9); Potassium 4.2 mmol/L (3.5-5.1); Sodium Level 139 mmol/L (136-145)
[2023-09-14] MEDS: oxyCODONE 5 MG Tablet PO (08:08)
[2023-09-14] MEDS: Lisinopril 10 MG Tablet PO (08:10)
[2023-09-14] MEDS: Enoxaparin 40 MG/0.4 ML Syringe SC (08:12)
--- NOTE | 2023-09-14 09:01 | CASEMGMT ---
Dicharge Planning [facility] has obtained auth. SW updated. Analilia Acuna, Discharge Planning Asst.
[2023-09-14 12:00] VITALS: BP 139/94; PULSE 104; RESP 17; TEMP 36.8; O2SAT 95
--- NOTE | 2023-09-14 12:00 | PCM.DC.SUM ---
Providers Date of Admission: 09/08/23 Date of Discharge: 09/14/23 Primary Care Physician: Dr. Daniel Dolan MD Consultations 09/08/23 15:44 Consult: Orthopedics Routine Consulting Provider: Tam Pedro Reason for Consult: R Ankle fracture EMERGENT Consult: No MD Notified: Yes Date Notified: 09/08/23 Time Notified: 15:28 Method of Notification: ED Physician Initiated Reason For Visit: R ANKLE FRACTURE, DEBILITY Diagnosis Discharge Diagnosis (1) Fall: Status: Acute Code(s): W19.XXXA - Unspecified fall, initial encounter (2) Fracture of distal end of right tibia: Status: Acute Code(s): S82.301A - Unspecified fracture of lower end of right tibia, initial encounter for closed fracture Qualifiers: Encounter type: initial encounter Fracture type: closed Fracture morphology: other fracture Qualified Code(s): S82.391A - Other fracture of lower end of right tibia, initial encounter for closed fracture (3) Generalized weakness: Status: Acute Code(s): R53.1 - Weakness (4) Hyperglycemia: Status: Acute Code(s): R73.9 - Hyperglycemia, unspecified Medications at Discharge Home Medications lisinopril 10 mg tablet 10 mg PO DAILY BLOOD PRESSURE 09/08/23 acetaminophen 500 mg tablet 1,000 mg (2 x 500 mg) PO Q8 #0 tabs 09/14/23 amlodipine 10 mg tablet 10 mg PO DAILY #0 tabs 09/14/23 docusate sodium 100 mg capsule 100 mg PO BID #0 caps 09/14/23 metoprolol tartrate 25 mg tablet 25 mg PO BID #0 tabs 09/14/23 oxycodone 5 mg tablet 5 mg PO Q4H PRN PRN Pain Score 4-10 1 day #6 tabs 09/14/23 sennosides 8.6 mg-docusate sodium 50 mg tablet (Stool Softener-Stimulant Laxative) 2 tab PO BID PRN PRN Constipation #0 tabs 09/14/23 Hospital Course Procedures - (R Tib-fib and ankle x-ray/CT right lower extremity) Summary of Care Provided Minutes Spent on Discharge: 37 Hospital Course: Mr. Varghese is a 38-year-old white male who presented to the emergency department [facility] on 09/08/2023 after sustaining a fall with resultant right ankle pain. The patient is following with a neurologist at [facility] [place] and they were doing a workup for possible multiple sclerosis diagnosis. He had an appointment on the day of presentation. He was using his walker and walking across the lawn where there was a steep pitch upwards and he fell. He twisted his right ankle. He does have some neuropathy at baseline and does not have a lot of pain on presentation however he had significant lateral ankle swelling and was brought to the emergency department. He does have previous right patellar fracture with ORIF done by Dr. Pedro. Vital signs on presentation were unremarkable. His CBC showed a leukocytosis and a left shift but was otherwise normal. He had no signs of infection. Coags were normal. Chemistry panel showed mild hyperglycemia but was otherwise unremarkable. Right tibia and fibula x-rays showed healing ORIF of the right patella and no acute fracture or dislocation. Ankle x-ray showed possible nondisplaced fracture of the right distal tibia and CT showed nondisplaced intra-articular fracture of the right distal tibia. The case was discussed with Dr. Pedro by the emergency department physician who was in the operating room at the time but reviewed his images and evaluated the patient in consult on the medical floor. Splint was placed in the emergency department. He was admitted to medical floor and given pain medication for management of any pain he would suffer and he was seen by Dr. Pedro. Orthopedic surgery recommended continued immobilization with splint and nonoperative management. He is to be nonweightbearing on the right lower extremity and will plan to transition to a cast in the outpatient setting. The patient had significant disability related to his overall conditioning and strength and patient felt he needed therapy at discharge. He was seen by physical Occupational Therapy and they agreed. Placement in skilled facility was recommended and pursued. [facility] was a preferable location for the patient and precertification was obtained on 09/14/2023. He was able to be discharged there in stable condition on 09/14/2023. He has to follow-up with Dr. Pedro within the next week for outpatient imaging and permanent cast placement. The patient's blood pressure was elevated throughout his hospital course. He was already taking lisinopril at home and metoprolol and amlodipine were added to his regimen. Patient should follow-up with his primary care physician within 1 month and I encouraged him to reestablish his appointment with [facility] neurology after discharge. Discharge diagnoses: Distal right tibial fracture Debility/generalized weakness Hyperglycemia-resolved Hypertension Progressive neuromuscular weakness Morbid obesity Physical Exam Const alert, oriented x3, no apparent distress and well nourished; Negative for average body habitus or healthy appearing Constitutional Narrative: Morbidly obese, middle-aged, white male, lying in bed watching television, appears comfortable and nontoxic General Appearance: cooperative, comfortable, well kempt and well developed Orientation / Consciousness: awake, oriented to person, oriented to place and oriented to time Exam Limitations: no limitations Nutritional Appearance: morbidly obese HEENT normocephalic, head/scalp atraumatic, hearing grossly normal bilaterally and moist oral mucous membranes HEENT Narrative: Mallampati 3, no thrush Eyes PERRL, EOMs intact bilaterally and conjunctivae normal Eyes Narrative: No scleral icterus Neck no lymphadenopathy and supple Neck Narrative: Trachea midline, no thyroid enlargement Resp normal respiratory effort, no retractions, no use of accessory muscles and clear to auscultation bilaterally Auscultation: Negative for rales, rhonchi or wheezes Cardio regular rate, regular rhythm, S1 normal heart sound, S2 normal heart sound, no murmurs, no rub, no gallops and no clicks GI normal to inspection, nondistended, normoactive bowel sounds, soft to palpation and non-tender Extremity Extremity Narrative: Right lower extremity in a splint with 2+ cap refill, left lower extremity with 2+ pedal pulses, no edema noted on the left side, no cyanosis or clubbing Skin no rashes or lesions noted, no wounds, skin turgor normal and no jaundice Neuro oriented x3 and CN's II-XII intact bilaterally Neuro Narrative: Inability to move distal right lower extremity due to splint but no specific focal deficits noted, patient with bilateral lower extremity neuropathy Speech: speech normal Psych Psych Narrative: Affect is flat and interaction is strange Weight / BMI Weight Weight: 150.2 kg Body Mass Index (BMI) 40.3 ABG / Lab / Microbiology Data 09/14/23 06:54 09/14/23 06:54 Laboratory: Laboratory Results - last 24 hr 09/14/23 06:54: WBC 12.7 H, RBC 4.39 L, Hgb 13.0, Hct 39.8 L, MCV 90.7, MCH 29.6, MCHC 32.7, RDW Std Deviation 44.4 H, RDW Coeff of Jacey 13.5, Plt Count 341, MPV 8.6, Immature Gran % (Auto) 0.900, Neut % (Auto) 49.7, Lymph % (Auto) 33.1, Republic % (Auto) 10.9 H, Eos % (Auto) 4.4, Baso % (Auto) 1.0, Absolute Neuts (auto) 6.3, Absolute Lymphs (auto) 4.19, Nucleated RBC % 0, Sodium 139, Potassium 4.2, Chloride 107, Carbon Dioxide 26.0, Anion Gap 6, BUN 14, Creatinine 0.83, Estim Creat Clear Calc 191.44, Est GFR (MDRD) Af Amer 133, Est GFR (MDRD) Non-Af 110, BUN/Creatinine Ratio 16.9, Glucose 113 H, Calcium 9.2, Phosphorus 4.7, Magnesium 2.1 Meaningful Use Info Meaningful Use Diagnoses (Choose all that apply): None applicable Discharge Plan Admission Admit Date/Time: 09/08/23 15:21 Primary Reason for Your Visit: Fall/R ankle pain Attending Provider: Mya Carranza Primary Care Provider: Daniel Dolan Consulting Providers: Tam Pedro; Mya Carranza; Nagi Street Instructions Additional Instructions / Restrictions: 1. Please call to reschedule your appointment at [facility] for your neurologist appointment 2. With orthopedic surgery please follow-up Discharge Orders/Prescriptions Prescriptions: New acetaminophen 500 mg Tablet 1,000 mg PO Q8 Qty: 0 0RF amlodipine 10 mg Tablet 10 mg PO DAILY Qty: 0 0RF docusate sodium 100 mg Capsule 100 mg PO BID Qty: 0 0RF oxycodone 5 mg Tablet 5 mg PO Q4H PRN PRN (Reason: Pain Score 4-10) 1 Days Qty: 6 0RF metoprolol tartrate 25 mg Tablet 25 mg PO BID Qty: 0 0RF sennosides-docusate sodium [Stool Softener-Stimulant Laxat] 8.6-50 mg Tablet 2 tab PO BID PRN PRN (Reason: Constipation) Qty: 0 0RF Continued lisinopril 10 mg tablet 10 mg PO DAILY Referrals / Follow Up: Daniel Dolan MD [Primary Care Provider] - Within 1 Month Tam Pedro DO [Med Staff - Active Staff] - Within 1 Week (hospital follow-up) Disposition Disposition (needs filled in before D/C Order can be placed): [facility] Charges/Coding Visit Charges Inpatient E&M: 28727 SNF Disch >30 Min
--- NOTE | 2023-09-14 13:01 | PHA.DC.MR.R ---
Pharmacy [place] Med Reconciliation Pharmacy Service has performed discharge medication reconciliation for this patient. The patient's discharge medication list was reviewed for discrepancies and discrepancies were resolved. Medications at Discharge Home Medications lisinopril 10 mg tablet 10 mg PO DAILY BLOOD PRESSURE 09/08/23 acetaminophen 500 mg tablet 1,000 mg (2 x 500 mg) PO Q8 #0 tabs 09/14/23 amlodipine 10 mg tablet 10 mg PO DAILY #0 tabs 09/14/23 docusate sodium 100 mg capsule 100 mg PO BID #0 caps 09/14/23 metoprolol tartrate 25 mg tablet 25 mg PO BID #0 tabs 09/14/23 oxycodone 5 mg tablet 5 mg PO Q4H PRN PRN Pain Score 4-10 1 day #6 tabs 09/14/23 sennosides 8.6 mg-docusate sodium 50 mg tablet (Stool Softener-Stimulant Laxative) 2 tab PO BID PRN PRN Constipation #0 tabs 09/14/23
--- NOTE | 2023-09-14 14:16 | CASEMGMT ---
Precert attained, THOMAS let physician know, she is discharging pt. THOMAS let pt know, he is agreeable to go to [facility] today. JEAN Rueda
--- NOTE | 2023-09-14 14:17 | PCM.TXEXTCAR ---
Diet Diet Order/Speech Therapy: 09/09/23 15:51 Diet: Regular - No Added Salt Food consistency:: Regular Liquid Consistency:: Regular/Thin Is pt able to select menu?: Yes Routine Orders/Code Status Suppository Frequency: Daily PRN Routine Lab Work: CBC (1 week) and BMP (1 week) Code Status: Full Code Wound(s) LUE: Wound Type: scabs RLE: Wound Type: fracture site Therapies Weight Bearing: Non weight bearing Extremity Affected:: Right Lower Physical Therapy: Eval and Treat Occupational Therapy: Eval and Treat Problem/Diagnosis (1) Fall: Status: Acute Code(s): W19.XXXA - Unspecified fall, initial encounter (2) Fracture of distal end of right tibia: Status: Acute Code(s): S82.301A - Unspecified fracture of lower end of right tibia, initial encounter for closed fracture (3) Generalized weakness: Status: Acute Code(s): R53.1 - Weakness (4) Hyperglycemia: Status: Acute Code(s): R73.9 - Hyperglycemia, unspecified Allergies/Procedures Done in Hospital Allergies No Known Allergies Allergy (Verified 09/08/23 12:44) Procedures: - (X-ray and CT of right lower extremity) Type of Care/Length of Stay Estimated LOS: Convalescent Care Less Than 30 days Type of Care Needed: Skilled Rehab Potential: Good Prognosis: Fair Additional Orders/Day of Discharge Day of Discharge: 09/14/23 Dietary and Speech Recommendations Dietitian Recommendations/Changes: RD will adjust diet to Regular - JOHNIE to help optimize oral intakes. Follow Up Care Please follow up with your Primary Care Physician in: 4 weeks Please Follow Up With: Tam Pedro DO Discharge Plan Admission Admit Date/Time: 09/08/23 15:21 Primary Reason for Your Visit: Fall/R ankle pain Attending Provider: Mya Carranza Primary Care Provider: Daniel Dolan Consulting Providers: Tam Pedro; Mya Carranza; Nagi Street Instructions Additional Instructions / Restrictions: 1. Please call to reschedule your appointment at [facility] for your neurologist appointment 2. With orthopedic surgery please follow-up Discharge Orders/Prescriptions Prescriptions: New acetaminophen 500 mg Tablet 1,000 mg PO Q8 Qty: 0 0RF amlodipine 10 mg Tablet 10 mg PO DAILY Qty: 0 0RF docusate sodium 100 mg Capsule 100 mg PO BID Qty: 0 0RF oxycodone 5 mg Tablet 5 mg PO Q4H PRN PRN (Reason: Pain Score 4-10) 1 Days Qty: 6 0RF metoprolol tartrate 25 mg Tablet 25 mg PO BID Qty: 0 0RF sennosides-docusate sodium [Stool Softener-Stimulant Laxat] 8.6-50 mg Tablet 2 tab PO BID PRN PRN (Reason: Constipation) Qty: 0 0RF Continued lisinopril 10 mg tablet 10 mg PO DAILY Referrals / Follow Up: Tam Pedro DO [Med Staff - Active Staff] - Within 1 Week (hospital follow-up) Daniel Dolan MD [Primary Care Provider] - Within 1 Month Disposition Disposition (needs filled in before D/C Order can be placed): Long-Term Facility (2) Fracture of distal end of right tibia Qualifiers: Encounter type: initial encounter Fracture type: closed Fracture morphology: other fracture Qualified Code(s): S82.391A - Other fracture of lower end of right tibia, initial encounter for closed fracture
--- NOTE | 2023-09-14 14:49 | CASEMGMT ---
Discharge Planning Discharge orders, signed med list, and transport time sent to [facility] via [facility]. Physicians will transport patient by cot at 6p. Nursing, SW, and patient updated. Patient stated he would notify his family. Analilia Acuna, Discharge Planning Asst.
== END 2023-09-14 16:04 | disposition skilled nursing facility (03) | DRG 342 ==
LOC: ED 15:11 → MS3 09-09 06:46
PROVIDERS: Internal Medicine; Admitting Provider Internal Medicine; Emergency Provider Emergency Medicine; PCP Family Medicine; Visit Provider Internal Medicine
DX: S82.391A Other fracture of lower end of right tibia, initial encounter for closed fracture (principal); G70.9 Myoneural disorder, unspecified; E66.01 Morbid (severe) obesity due to excess calories; Z68.41 Body mass index [BMI] 40.0-44.9, adult; E87.1 Hypo-osmolality and hyponatremia; I10 Essential (primary) hypertension; G62.9 Polyneuropathy, unspecified; R53.1 Weakness; R73.9 Hyperglycemia, unspecified; Z87.891 Personal history of nicotine dependence; R53.81 Other malaise; Z79.899 Other long term (current) drug therapy; W17.81XA Fall down embankment (hill), initial encounter; Y93.01 Activity, walking, marching and hiking; Y92.007 Garden or yard of unspecified non-institutional (private) residence as the place of occurrence of the external cause; Z74.09 Other reduced mobility; M25.511 Pain in right shoulder; M25.512 Pain in left shoulder
CPT/HCPCS: 29515; 36415; 73590; 73610; 73700; 80048; 83036; 83735; 84100; 85025; 85610; 85730; 94668; 96372; 96374; 96375; 97110; 97162; 97166; 97530; 97535; 97802; 99221; 99252; 99283; 99406; J7120; A4216; G0378; G0463; J2405

== ENCOUNTER → 2023-09-15 | Outpatient (REF) | payer MEDICAID, SELFPAY ==
[2023-09-15 09:18] LABS: Absolute Lymphocyte Count 4.07 X10^3/uL (0.83-4.51); Basophil# 0.11 X10^3/uL; Basophil% 0.9 % (0-1); Eosinophil# 0.56 X10^3/uL; Eosinophils% 4.7 % (0-5); Hematocrit 38.8 % (40-54); Hemoglobin 12.7 g/dL (13.0-16.5); Lymphocyte # 4.07 X10^3/ul (0.83-4.51); Lymphocyte % 34.3 % (19-41); Mean Corp Hgb Conc 32.7 g/dL (32-36); Mean Corpuscular Hgb 29.5 pg (27.0-32.0); Mean Corpuscular Volume 90.2 fL (80-94); Mean Platelet Vol. 9.1 fl (6.2-12.0); Monocyte# 1.01 X10^3/uL; Monocyte% 8.5 % (0-10); NRBC Flagged by Analyzer 0 % (0-5); Neutrophil # 6.04 X10^3/uL (2.7-7.7); Neutrophil % 50.9 % (47-70); Platelet Count 346 K/mm3 (150-450); RBC Distribution Width CV 13.5 % (11.6-14.6); RBC Distribution Width SD 44.7 fl (35.1-43.9); White Blood Count 11.9 K/mm3 (4.4-11.0)
[2023-09-15 09:29] LABS: Anion Gap 6 (5-15); BUN 11 mg/dL (7-18); BUN/Creat Ratio 13.8 RATIO (10-20); Calcium,Total 8.7 mg/dL (8.5-10.1); Chloride 108 mmol/L (98-107); EST Glomerular Filtration Rate 115 mL/min (>60); Est Glom Filt Rate - Afr Amer 139 mL/min (>60); Glucose 112 mg/dL (74-106); Magnesium 2.1 mg/dL (1.6-2.6); Potassium 3.9 mmol/L (3.5-5.1); Sodium Level 139 mmol/L (136-145)
[2023-09-15 09:51] LABS: Vitamin B12 265 pg/mL (211-911); Vitamin D,25 Hydroxy 14.9 ng/mL
== END | disposition home or self-care (01) ==
LOC: OLS.SW 07:25
PROVIDERS: PCP Family Medicine; Visit Provider Internal Medicine
DX: Z02.2 Encounter for examination for admission to residential institution (principal)
CPT/HCPCS: 36415; 80048; 82306; 82607; 83735; 85025

== ENCOUNTER → 2023-09-21 05:00 | Outpatient (REF) | payer MEDICAID, SELFPAY ==
[2023-09-21 08:25] LABS: Absolute Neutrophil Count 3.2 X10^3/uL (2.0-7.7); Basophil# 0.05 X10^3/uL; Basophil% 0.7 % (0-1); Eosinophil# 0.17 X10^3/uL; Eosinophils% 2.4 % (0-5); Hematocrit 44.1 % (40-54); Hemoglobin 14.6 g/dL (13.0-16.5); Lymphocyte % 36.5 % (19-41); Mean Corp Hgb Conc 33.1 g/dL (32-36); Mean Corpuscular Volume 90.7 fL (80-94); Mean Platelet Vol. 9.4 fl (6.2-12.0); Monocyte# 1.07 X10^3/uL; NRBC Flagged by Analyzer 0 % (0-5); Platelet Count 270 K/mm3 (150-450); RBC Distribution Width CV 13.6 % (11.6-14.6); RBC Distribution Width SD 45.8 fl (35.1-43.9); Red Blood Count 4.86 M/mm3 (4.6-6.2); White Blood Count 7.1 K/mm3 (4.4-11.0)
[2023-09-21 09:33] LABS: Anion Gap 4 (5-15); BUN 10 mg/dL (7-18); BUN/Creat Ratio 10.8 RATIO (10-20); Calcium,Total 8.6 mg/dL (8.5-10.1); Chloride 104 mmol/L (98-107); Creatinine, Serum 0.93 mg/dL (0.70-1.30); EST Glomerular Filtration Rate 97 mL/min (>60); Est Glom Filt Rate - Afr Amer 117 mL/min (>60); Glucose 103 mg/dL (74-106); Sodium Level 135 mmol/L (136-145); Thyroid Stim Hormone (TSH) 6.42 uIU/mL (0.358-3.74)
== END ==
LOC: OLS.SW 05:00
PROVIDERS: PCP Family Medicine; Visit Provider Internal Medicine
DX: E66.01 Morbid (severe) obesity due to excess calories (principal); Z68.41 Body mass index [BMI] 40.0-44.9, adult; R73.9 Hyperglycemia, unspecified
CPT/HCPCS: 36415; 80048; 84443; 85025

== ENCOUNTER → 2023-10-08 05:10 | Outpatient (REF) | payer MEDICAID, SELFPAY ==
[2023-10-08 09:21] LABS: Thyroid Stim Hormone (TSH) 4.79 uIU/mL (0.358-3.74)
== END ==
LOC: OLS.SW 05:10
PROVIDERS: PCP Family Medicine; Visit Provider Internal Medicine
DX: I10 Essential (primary) hypertension; R73.9 Hyperglycemia, unspecified; R79.9 Abnormal finding of blood chemistry, unspecified
CPT/HCPCS: 36415; 84443